=== PATIENT | male | born 1930 | race Caucasian/White ===

== ENCOUNTER 2016-10-03 14:07 | Inpatient (IN) ==
--- NOTE | 2016-10-03 15:04 | Emergency Department Note ---
General Adult HPI - General Chief complaint: Altered Mental Status Stated complaint: altered mental status Time Seen by Provider: 10/03/16 14:29 Source: EMS Mode of arrival: EMS - History of Present Illness HPI Narrative: History is obtained from the family. Apparently he's been on a downhill course for the last month, recently had a urinary tract infection which was treated and he had a follow-up appointment with [facility]. According to family he was started on antibiotics again just recently as they presumed he had another urinary infection, just in last 24 hours he's had a decrease in mentation today he had an episode where he had leg cramps and he seemed a lot more somnolent than he usually is, low-grade fever no chest pain no shortness of breath no cough history and he denies abdominal pain or chest pain. He's had stool and urinary incontinence and wears a depends. Memory issues which have been getting worse just recently put long-standing history of dementia issues. He does have a living will, limited interventions a - Related Data Home Medications Medication Instructions Recorded Confirmed aspirin 81 mg tablet,delayed 81 mg PO QDAY tab 09/25/14 09/15/16 release cholecalciferol (vitamin D3) 1,000 1,000 unit PO DAILY cap 09/25/14 09/15/16 unit capsule coenzyme Q10 100 mg capsule 200 mg PO QDAY cap 09/25/14 07/03/16 omega-3 fatty acids 1,000 mg 2,000 mg PO QDAY cap 09/25/14 09/15/16 capsule Cyanocobalamin [Vitamin B12] 1,000 mcg IM WEEKLY 07/03/16 09/15/16 acetaminophen 325 mg capsule 650 mg PO Q4H PRN 09/15/16 09/15/16 bisacodyl 10 mg rectal suppository 10 mg AK ONCE PRN 09/15/16 09/15/16 calcium carbonate 200 mg calcium 200 mg PO TID PRN 09/15/16 09/15/16 (500 mg) chewable tablet dutasteride 0.5 mg capsule 0.5 mg PO QDAY 09/15/16 09/15/16 escitalopram 10 mg tablet 10 mg PO QDAY 09/15/16 09/15/16 folic acid 1 mg tablet 1 mg PO QDAY 09/15/16 09/15/16 magnesium hydroxide 400 mg/5 mL 7.5 ml PO BID PRN 09/15/16 09/15/16 oral suspension melatonin 3 mg tablet 3 mg PO HS PRN 09/15/16 09/15/16 multivitamin,ov-llqp-qahhocmg 1 tab PO QDAY 09/15/16 09/15/16 tablet omeprazole 20 mg capsule,delayed 20 mg PO QDAY cap 09/15/16 09/15/16 release polyethylene glycol 3350 17 8.5 g PO QDAY PRN 09/15/16 09/15/16 gram/dose oral powder sodium phosphates 19 gram-7 118 ml AK ONCE 09/15/16 09/15/16 gram/118 mL enema Previous Rx's Medication Instructions Recorded metronidazole 0.75 % topical gel 1 applic TOPICAL QDAY #45 g 04/14/16 tamsulosin 0.4 mg capsule 0.4 mg PO .QOD #90 cap 06/08/16 isosorbide mononitrate ER 60 mg 60 mg PO QAM 90 Days 06/22/16 tablet,extended release 24 hr Phenazopyridine [Pyridium] 200 mg PO TIDP PRN #6 tab 08/24/16 Allergies Allergy/AdvReac Type Severity Reaction Status Date / Time Penicillins Allergy Severe Unknown Verified 10/03/16 14:13 niacin Allergy Intermediate Unknown Verified 10/03/16 14:13 hydrocodone AdvReac Mild Unknown Verified 10/03/16 14:13 Review of Systems Limitations: ROS unobtainable due to patients medical condition Constitutional: Reports: weakness Gastrointestinal: Reports: other (stool incontinence) Past Medical History - Past Medical History Source: unable to obtain, obtained from family Medical history: Reports: arthritis, asthma, coronary artery disease, hypertension Surgical history ED: Reports: angioplasty/stent, appendectomy, cholecystectomy, hip replacement, knee replacement Family history: Reports: no significant family history - Social History smoking status: Never smoker Alcohol use: Reports: Rarely Drug use: Reports: none Physical Exam - General Limitations: altered mental status, physical limitation General appearance: alert, lethargic - Head Head exam: atraumatic, normocephalic - Eye Eye exam: Present: normal appearance, PERRL, EOMI. Absent: conjunctival injection - ENT ENT exam: normal exam, mucous membranes dry, normal external ear exam, other ( Hearing aid bilaterally) - Neck Neck exam: Present: normal inspection, full ROM, trachea midline. Absent: tenderness, meningismus - Chest Chest inspection: Present: normal inspection, symmetric chest wall rise - Respiratory Respiratory exam: Present: normal lung sounds bilaterally. Absent: respiratory distress, wheezes - Cardiovascular Cardiovascular exam: Present: regular rate, normal rhythm - Abdominal Exam Abdominal exam: Present: soft, normal bowel sounds. Absent: distention, tenderness, guarding - exam: Present: normal inspection, normal testicular lie - Extremities Exam Extremities exam: Present: normal inspection, full ROM, other (decreased muscle tone in general) - Back Exam Back exam: Absent: CVA tenderness (R), CVA tenderness (L) - Neurological Exam Neurological exam: Present: other (Arousable he does follow simple commands) - Psychiatric Psychiatric exam: Present: normal affect - Skin Skin exam: Present: warm, dry, intact Course - Reevaluation(s) Reevaluation #1: Patient given IV fluids. We did check a urine specimen, also collected some stool as he was incontinent of stool. Stool was heme negative but did test positive for C. difficile. Vital Signs Temperature 99.9 F H 10/03/16 14:07 Pulse Rate 100 H 10/03/16 14:07 Respiratory Rate 13 10/03/16 14:07 Blood Pressure 142/102 10/03/16 14:07 Pulse Oximetry (%) 92 10/03/16 14:07 Temperature 99.9 F H 10/03/16 14:07 Pulse Rate 96 H 10/03/16 16:21 Respiratory Rate 25 H 10/03/16 16:31 Blood Pressure 99/63 10/03/16 16:31 Pulse Oximetry (%) 94 10/03/16 16:21 Medical Decision Making - [facility] Narrative Medical decision making narrative: Discussed hospital admission with Dr. Vaughan. He will stay in the hospital thi he did improve with IV fluids, he will need treatment for C. difficile diarrhe - Medical Records Medical records reviewed: Yes I reviewed the patient's medical records. - Lab Data Lab results reviewed: Yes I reviewed the patient's lab results. Result diagrams: 10/03/16 14:41 10/03/16 14:41 Lab Results 10/03/16 10/03/16 10/03/16 Range/Units 14:41 14:41 14:41 WBC 18.9 H (4.5-11.0) K/mcL RBC 4.99 (4.50-5.90) M/mcL Hgb 16.0 (13.5-16.5) g/dL Hct 47.9 (41.0-55.0) % MCV 96.1 (80.0-100.0) fL MCH 32.1 (26.0-34.0) pg MCHC 33.4 (31.0-36.0) g/dL RDW 14.4 (11.5-14.5) % Plt Count 201 (140-440) K/mcL MPV 8.5 (7.4-10.4) fL Gran % 96.4 H (38.0-78.0) % Lymph % (Auto) 1.4 L (15.5-49.0) % Amelia % (Auto) 2.0 (1.0-12.0) % Eos % (Auto) 0.2 (0.0-7.0) % Baso % (Auto) 0 (0.0-2.0) % Gran # 18.2 H (1.8-8.0) K/mcL Lymph # (Auto) 0.3 L (1.5-4.8) K/mcL Amelia # (Auto) 0.4 (0.1-0.9) K/mcL Eos # (Auto) 0 (0.0-0.7) K/mcL Baso # (Auto) 0 (0.0-0.3) K/mcL VBG Lactic Acid 1.5 (0.5-2.2) mmol/L Sodium 134 (133-145) mmol/L Potassium 3.7 (3.3-5.1) mmol/L Chloride 97 (96-108) mmol/L Carbon Dioxide 21 L (22-30) mmol/L Anion Gap 16.0 (8-16) BUN 11 (8-23) mg/dl Creatinine 0.7 (0.7-1.2) mg/dl GFR Calculation 85 Glucose 133 H (70-105) mg/dL Calcium 8.8 (8.6-10.4) mg/dl Total Bilirubin 1.2 H (0.0-1.0) mg/dL AST 26 (0-37) U/l ALT 22 (0-40) U/l Alkaline Phosphatase 67 (39-117) U/L C-Reactive Protein (0.0-0.8) mg/dl Total Protein 6.4 (5.9-8.4) gm/dL Albumin 3.9 (3.2-5.2) gm/dL Globulin 2.5 (2.2-3.7) gm/dL Albumin/Globulin Ratio 1.6 (1.0-2.3) Urine Color Urine Appearance Urine pH (5.0-9.0) Ur Specific Ping[place] (1.000-1.035) Urine Protein (NEG) mg/dL Urine Glucose (UA) (NEG) mg/dL Urine Ketones (NEG) mg/dL Urine Occult Blood (<0.03) mg/dL Urine Nitrate (NEG) Urine Bilirubin (NEG) mg/dL Urine Urobilinogen (NEG) mg/dL Ur Leukocyte Esterase (NEG) /uL Ur Culture Indicated? 10/03/16 10/03/16 Range/Units 14:41 15:23 WBC (4.5-11.0) K/mcL RBC (4.50-5.90) M/mcL Hgb (13.5-16.5) g/dL Hct (41.0-55.0) % MCV (80.0-100.0) fL MCH (26.0-34.0) pg MCHC (31.0-36.0) g/dL RDW (11.5-14.5) % Plt Count (140-440) K/mcL MPV (7.4-10.4) fL Gran % (38.0-78.0) % Lymph % (Auto) (15.5-49.0) % Amelia % (Auto) (1.0-12.0) % Eos % (Auto) (0.0-7.0) % Baso % (Auto) (0.0-2.0) % Gran # (1.8-8.0) K/mcL Lymph # (Auto) (1.5-4.8) K/mcL Amelia # (Auto) (0.1-0.9) K/mcL Eos # (Auto) (0.0-0.7) K/mcL Baso # (Auto) (0.0-0.3) K/mcL VBG Lactic Acid (0.5-2.2) mmol/L Sodium (133-145) mmol/L Potassium (3.3-5.1) mmol/L Chloride (96-108) mmol/L Carbon Dioxide (22-30) mmol/L Anion Gap (8-16) BUN (8-23) mg/dl Creatinine (0.7-1.2) mg/dl GFR Calculation Glucose (70-105) mg/dL Calcium (8.6-10.4) mg/dl Total Bilirubin (0.0-1.0) mg/dL AST (0-37) U/l ALT (0-40) U/l Alkaline Phosphatase (39-117) U/L C-Reactive Protein 1.4 H (0.0-0.8) mg/dl Total Protein (5.9-8.4) gm/dL Albumin (3.2-5.2) gm/dL Globulin (2.2-3.7) gm/dL Albumin/Globulin Ratio (1.0-2.3) Urine Color Yellow Urine Appearance Clear Urine pH 5.0 (5.0-9.0) Ur Specific [place] 1.015 (1.000-1.035) Urine Protein Neg (NEG) mg/dL Urine Glucose (UA) Negative (NEG) mg/dL Urine Ketones 5/tr A (NEG) mg/dL Urine Occult Blood Neg (<0.03) mg/dL Urine Nitrate Neg (NEG) Urine Bilirubin Neg (NEG) mg/dL Urine Urobilinogen Neg (NEG) mg/dL Ur Leukocyte Esterase Neg (NEG) /uL Ur Culture Indicated? No Disposition Pt seen by TEST DESK SUPERVISOR/PA only: No Clinical Impression: Clostridium difficile colitis, Altered mental status Disposition: Xfer As Inpt ([facility]) Condition: Fair Referrals: Desmond Jackson MD [Primary Care Provider] -
[2016-10-03] MEDS ORDERED: LACTATED RINGERS 1,000 ML IV ONE ×2 (15:10→16:55)
[2016-10-03 15:11] LABS: Basophils # (Auto) 0 K/mcL (0.0-0.3); Basophils % (Auto) 0 % (0.0-2.0); Eosinophils # (Auto) 0 K/mcL (0.0-0.7); Eosinophils % (Auto) 0.2 % (0.0-7.0); Granulocytes % (Auto) 96.4 % (38.0-78.0); Lymphocytes # (Auto) 0.3 K/mcL (1.5-4.8); Lymphocytes % (Auto) 1.4 % (15.5-49.0); Mean Cell Volume 96.1 fL (80.0-100.0); Mean Corpuscular HGB Conc 33.4 g/dL (31.0-36.0); Mean Corpuscular Hemoglobin 32.1 pg (26.0-34.0); Monocytes # (Auto) 0.4 K/mcL (0.1-0.9); Platelet Count 201 K/mcL (140-440); RBC 4.99 M/mcL (4.50-5.90); Red Cell Distribution Width 14.4 % (11.5-14.5)
[2016-10-03] MEDS ORDERED: LIDOCAINE JEL 2% 1 TUBE 30GM TOPICAL ONE (15:21)
[2016-10-03 15:38] LABS: ALT/SGPT 22 U/l (0-40); Albumin 3.9 gm/dL (3.2-5.2); Albumin/Globulin Ratio 1.6 (1.0-2.3); Alkaline Phosphatase 67 U/L (39-117); Blood Urea Nitrogen 11 mg/dl (8-23)
--- NOTE | 2016-10-03 15:56 | XRay Report ---
CLINICAL INFORMATION: Weakness TECHNIQUE: AP portable upright chest x-ray COMPARISON: Previous chest x-rays dated 04/30/2016 and 09/14/2013 FINDINGS: Lungs are negative. No parenchymal infiltrate or mass. Heart size and vascularity are normal. No pulmonary edema. No pulmonary congestion. Tarah and mediastinum are negative. Deformity of the proximal right humerus from previous fracture. Surgical resection of the distal right clavicle IMPRESSION: No acute abnormality. Interpreted and Authenticated by: Elder Carmona 10/03/16
[2016-10-03 16:02] LABS: Appearance,Urine CLEAR; Bilirubin,Urine NEG (NEG); Color,Urine YELLOW; Glucose,Urine (UA) NEGATIVE (NEG); Leukocyte Esterase,Urine NEG /uL (NEG); Nitrate,Urine NEG (NEG); Protein,Urine NEG (NEG); Specific Gravity,Urine 1.015 (1.000-1.035); Urine Blood NEG mg/dL (<0.03); Urobilinogen,Urine NEG (NEG)
--- NOTE | 2016-10-03 17:27 | Internal Med History&Physical ---
Medical - H&P: HPI Patient information: Note initiated : 10/03/16 at 5:23 pm Patient: Se Luz 86 y/o M admitted on for altered mental status. History of present illness: Mr. Luz is a 86 year old man who is known to have progressive dementia. He apparently was diagnosed with urinary tract infection several weeks ago, and had a Chen catheter as well. His says he was on antibiotics for the full 3 weeks that he had the catheter, and then another week after the catheter was removed. He just finished his antibiotics yesterday. He does have dementia, and recently was placed at the [facility], [facility]. She visits him daily. She says that this morning he had a formed bowel movement, and seemed in his normal state, which is that he does recognize her, but is often confused and forgetful. Somewhere around lunchtime, he suddenly started having severe diarrhea. He then seemed to get a lot more confused. He was brought to the emergency room for evaluation. In the ER, he was incontinent of liquid stool. C. difficile screen was sent, and was positive. White blood cell count is markedly elevated. He is also febrile. He is now admitted for treatment of C. difficile colitis, and Sirs syndrome. He is unable to participate in a history, and is mostly nonverbal. He keeps his eyes closed during most of the interview. His reports that he has had a difficult time settling in at the [facility], because of all the bladder issues. However, prior to today, she is not aware that he was having any fever or chills. He has not complained of headaches or dizziness, new eye or ear symptoms, or throat or cough, chest pain or palpitations, shortness of breath. Prior to today he was not having any abdominal pain, nausea or vomiting, diarrhea or constipation. She does not believe he had vomiting today. She says since the catheter was removed, he seems to be voiding adequately. Medical History Acute weakness (Acute) Angina pectoris (Acute) Vasopastic Angina Bladder neck obstruction (Acute) Closed avulsion fracture of left ankle (Acute) Closed fracture nasal bone (Acute) Colonic polyp (Acute) Constipation (Acute) Contusion (Acute) Coronary artery disease (Acute) Stents Dehydration (Acute) Elbow abrasion (Acute) Fracture of fifth finger, right, closed (Acute) Hyperlipidemia (Acute) Laceration of eyebrow (Acute) Minor head injury without loss of consciousness (Acute) Osteoarthritis (Acute) With extensive surgeries Rosacea (Acute) Syncope due to orthostatic hypotension (Acute) Chronic vertigo (Chronic) Osteoporosis Surgical History Status post vertebroplasty for 2 compression fractures. H/O repair of right rotator cuff (Acute) History of appendectomy (Acute) History of arthroscopic knee surgery (Acute) History of arthroscopy of right knee (Acute) History of blepharoplasty (Acute) Bilateral History of cholecystectomy (Acute) History of ear surgery (Acute) Stapedectomy History of intraocular lens implant (Acute) Bilateral/mono Vision contacts History of knee surgery (Acute) R MMR History of left hip replacement (Acute) History of left inguinal hernia repair (Acute) History of lumbar discectomy (Acute) History of repair of left rotator cuff (Acute) History of sinus surgery (Acute) History of tonsillectomy (Acute) History of total right knee replacement (Acute) Medication List acetaminophen 650 mg PO Q4H PRN aspirin 81 mg PO QDAY bisacodyl (Dulcolax (bisacodyl)) 10 mg GA ONCE PRN calcium carbonate (Antacid (calcium carbonate)) 200 mg PO TID PRN cholecalciferol (vitamin D3) 1,000 units PO DAILY coenzyme Q10 200 mg PO QDAY cyanocobalamin (vit B-12) 1,000 mcg IM WEEKLY dutasteride 0.5 mg PO QDAY escitalopram (Lexapro) 10 mg PO QDAY folic acid 1 mg PO QDAY isosorbide mononitrate ER 30 mg PO QAM 90 days magnesium hydroxide (Milk of Magnesia) 7.5 mL PO BID PRN melatonin 3 mg PO HS PRN metronidazole 0.75% 1 applic Topical QDAY multivitamin,[id number]-hbafgmhp tablet (Complete Multivitamin tablet) 1 tab PO QDAY omega-3 fatty acids 2,000 mg PO QDAY omeprazole 20 mg PO QDAY phenazopyridine 200 mg PO TIDP PRN polyethylene glycol 3350 (Miralax) 8.5 grams PO QDAY PRN tamsulosin 0.4 mg PO .QOD Furosemide 20 mg every 48 hours Lactobacillus 1 cap daily Allergies/Adverse Reactions Penicillins Allergy (Severe, Verified 06/02/16 16:39) Unknown niacin Allergy (Intermediate, Verified 06/02/16 16:39) Unknown hydrocodone Adverse Reaction (Mild, Verified 06/02/16 16:39) Unknown Doxazosin: Caused orthostatic hypotension. Family History Mother , at 81y Malignant neoplasm of breast Father , Murdered at 32y Instantaneous He has 2 sisters that have had Alzheimer's disease. One has . Social History His says he never used tobacco or drugs. He only drank alcohol occasionally, and none down. He [facility] into [facility]. 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 She visits him daily. She and their daughter are both here today. Medical - H&P: Meds Home Medications Medication Instructions Recorded Confirmed Type aspirin 81 mg tablet,delayed 81 mg PO QDAY tab 09/25/14 10/03/16 History release cholecalciferol (vitamin D3) 1,000 2,000 unit PO DAILY cap 09/25/14 09/15/16 History unit capsule omega-3 fatty acids 1,000 mg 1,000 mg PO BID cap 09/25/14 09/15/16 History capsule tamsulosin 0.4 mg capsule 0.4 mg PO .QOD #90 cap 06/08/16 09/15/16 Rx Cyanocobalamin [Vitamin B12] 1,000 mcg IM WEEKLY 07/03/16 10/03/16 History Phenazopyridine [Pyridium] 200 mg PO TIDP PRN #6 tab 08/24/16 10/03/16 Rx acetaminophen 325 mg capsule 650 mg PO Q4H PRN 09/15/16 10/03/16 History bisacodyl 10 mg rectal suppository 10 mg GA ONCE PRN 09/15/16 10/03/16 History calcium carbonate 200 mg calcium 200 mg PO TID PRN 09/15/16 10/03/16 History (500 mg) chewable tablet dutasteride 0.5 mg capsule 0.5 mg PO QDAY 09/15/16 10/03/16 History escitalopram 10 mg tablet 10 mg PO QDAY 09/15/16 10/03/16 History folic acid 1 mg tablet 1 mg PO QDAY 09/15/16 10/03/16 History magnesium hydroxide 400 mg/5 mL 7.5 ml PO BID PRN 09/15/16 10/03/16 History oral suspension melatonin 3 mg tablet 3 mg PO HS PRN 09/15/16 10/03/16 History multivitamin,gm-ticb-nynkmxxi 1 tab PO QDAY 09/15/16 10/03/16 History tablet omeprazole 20 mg capsule,delayed 20 mg PO QDAY cap 09/15/16 10/03/16 History release polyethylene glycol 3350 17 8.5 g PO QDAY PRN 09/15/16 10/03/16 History gram/dose oral powder sodium phosphates 19 gram-7 118 ml GA ONCE 09/15/16 10/03/16 History gram/118 mL enema Calcium (Oyster Shell) [Oscal] 500 mg PO DAILY 10/03/16 10/03/16 History Furosemide [Lasix] 20 mg PO Q48 10/03/16 10/03/16 History Isosorbide Mononitrate [Isosorbide 30 mg PO DAILY 10/03/16 10/03/16 History Mononitrate ER] Lactobacillus [Culturelle] 1 cap PO DAILY 10/03/16 10/03/16 History Melatonin [Melatin] 3 mg PO DAILY 10/03/16 10/03/16 History Allergies Allergy/AdvReac Type Severity Reaction Status Date / Time Penicillins Allergy Severe Swelling Verified 10/03/16 17:59 of Lip/Tongue/Throat niacin Allergy Intermediate Unknown Verified 10/03/16 14:13 hydrocodone AdvReac Mild Unknown Verified 10/03/16 14:13 Medical - H&P: Exam - Constitutional Vitals: Temp Pulse Resp BP Pulse Ox 99.9 F H 96 H 25 H 99/63 94 10/03/16 14:07 10/03/16 16:21 10/03/16 16:31 10/03/16 16:31 10/03/16 16:21 On exam, he is a well-developed well-nourished man, who generally keeps his eyes closed. He is able to follow some commands. His daughter notes that on the neuro exam in the emergency room, he could not figure out which hand was his right hand versus left. Head: Normocephalic atraumatic. Eyes: PERRLA, EOMI, anicteric. Ears: Canals and TMs are clear. Pharynx: Looks fairly clear. Teeth are in good repair. Neck: Appears supple, without obvious lymphadenopathy, JVD, thyromegaly, bruits. Cardiac exam shows regular rate and rhythm with normal S1 and S2, without murmurs rubs or gallops. Lungs: Are clear to auscultation, without rales, rhonchi, wheezes. Abdomen: Is soft and nontender. There is no guarding or rebound. Bowel sounds are active. Extremities: Show no cyanosis, clubbing, edema. There is a small abrasion on 1 of his toes. Neurologic exam: This is not tested in detail today. The patient is mostly nonverbal. His reports he can generally recognize her, but is quite forgetful otherwise. She and/or her daughter plan on staying in the room with him. Medical - H&P: Reslt - Labs CBC & Chem 7: 10/03/16 14:41 10/03/16 14:41 Labs: Short CBC 10/03/16 Range/Units 14:41 WBC 18.9 H (4.5-11.0) K/mcL Hgb 16.0 (13.5-16.5) g/dL Hct 47.9 (41.0-55.0) % Plt Count 201 (140-440) K/mcL BMP 10/03/16 14:41 Sodium 134 Potassium 3.7 Chloride 97 Carbon Dioxide 21 L BUN 11 Creatinine 0.7 Glucose 133 H Calcium 8.8 Liver Function 10/03/16 Range/Units 14:41 Total Bilirubin 1.2 H (0.0-1.0) mg/dL AST 26 (0-37) U/l ALT 22 (0-40) U/l Alkaline Phosphatase 67 (39-117) U/L Albumin 3.9 (3.2-5.2) gm/dL Urine 10/03/16 Range/Units 15:23 Urine Color Yellow Urine Appearance Clear Urine pH 5.0 (5.0-9.0) Ur Specific Burley 1.015 (1.000-1.035) Urine Protein Neg (NEG) mg/dL Urine Glucose (UA) Negative (NEG) mg/dL October 03: White blood cell count is 18,900, hemoglobin 16, hematocrit 48, platelets 201. Absolute neutrophil count is 18,200. X Lactic acid is normal at 1.5 Chemistry panel is notable for CO2 of 21, glucose 133, bilirubin 1.2 C-reactive protein is elevated at 1.4 Urinalysis shows 5 ketones, but is otherwise normal C. difficile toxin B is positive. Chest x-ray: Shows no acute disease. Medical - H&P: A/P (1) SIRS (systemic inflammatory response syndrome) Current visit: Yes Status: Acute (2) Altered mental status Current visit: Yes Status: Acute (3) Clostridium difficile colitis Current visit: Yes Status: Acute (4) Coronary artery disease Problem details: Stents Current visit: No Status: Chronic - Narrative A/P Narrative: #1. Infectious disease/GI. -Patient presents with diarrhea, marked leukocytosis, and positive C. difficile screen. He also meets criteria for Sirs syndrome. Admit. IV fluids. Oral vancomycin if tolerated. If not consider IV Flagyl. -Discontinue proton pump inhibitor. Try Pepcid instead. Add probiotics. Contact precautions. 2. CODE STATUS: The patient's says that in the past her has wanted to be a full code. She has his POA. We discussed that at his advanced age, and with his dementia, coding him for any reason would probably be an appropriate. She and her daughter will think this over some more. 3. DVT prophylaxis: Subcu Lovenox. 4. Neurologic. Altered mental status. Alzheimer's disease. He has had a tough time over the last few months, being in and out of the hospital and fighting bladder infections. I suspect his acute decline is just related to acute infection. -Possible depression. Continue Lexapro. 5. History of coronary disease. I believe he has had 2 stents placed. His says he has been very stable. Continue occasional Lasix. Continue Isordil. Continue aspirin. It appears he is no longer on a statin medication. -Monitor blood pressure. -It appears he used to be on Celebrex, but this would be contraindicated. I do believe this is been discontinued. #6. The reports that the patient was having significant leg cramping earlier today. Potassium added to his IV fluids. Check magnesium level. Calcium level appears normal. - This visit took approximately 60 minutes, to review patient's old records, review his case with the ER MD, examine him, review history with the and the daughter, review plan of care, and write orders .
[2016-10-03] MEDS ORDERED: ACETAMINOPHEN 325 MG TABLET PO PRN (18:36)
[2016-10-03] MEDS ORDERED: POTASSIUM CHLORIDE 20 MEQ in DEXTROSE 5%-1/2NS 1,000 ML IV SCH (18:36)
[2016-10-03] MEDS ORDERED: CALCIUM CARBONATE 500 MG TAB.CHEW CHEWED PRN (18:36)
[2016-10-03] MEDS ORDERED: ONDANSETRON 4 MG/2 ML VIAL IV PRN (18:36)
--- NOTE | 2016-10-03 19:32 | XRay Report ---
INDICATION: Leukocytosis, diarrhea, abdominal pain TECHNIQUE: AP, supine abdomen COMPARISON: CT scan dated 06/19/2009 FINDINGS: There is gas within the colon. No colonic distention. No evidence for significant constipation or impaction. No gas-filled dilated small bowel. No radiographic evidence for mechanical small bowel obstruction. No biliary or portal venous gas. No pneumatosis. No focal abnormality. No pathologic calcifications There is a prosthetic left hip. There are changes of multilevel degenerative disc disease. Patient has undergone previous kyphoplasty is or vertebroplasties IMPRESSION: Negative plain film abdomen Interpreted and Authenticated by: Elder Carmona 10/03/16
[2016-10-03] MEDS ORDERED: CALCIUM CARBONATE 500 MG TAB.CHEW PO PRN (20:02)
[2016-10-03] MEDS ORDERED: CYANOCOBALAMIN 1,000 MCG/ML VIAL IM SCH (20:15)
[2016-10-03] MEDS: DEXTROSE 5%-1/2NS W/20MEQ KCL 1,000 ML IV SCH (21:14)
[2016-10-03] MEDS ORDERED: VANCOMYCIN 500 MG VIAL ONE (21:24)
[2016-10-03] MEDS: FISH OIL 1,000 MG CAPSULE PO SCH (21:37)
[2016-10-03] MEDS: PHENAZOPYRIDINE 200 MG TABLET PO PRN (21:37)
[2016-10-03] MEDS: VANCOMYCIN ORAL SOL 1,000 MG/10 ML BOTTLE PO SCH (21:38)
[2016-10-03] MEDS: LACTOBACILLUS 1 CAPSULE PO SCH (21:38)
[2016-10-03] MEDS ORDERED: PSYLLIUM HUSK 6 GM PACKET PO ONE (22:00)
[2016-10-03] MEDS: ACETAMINOPHEN W/CODEINE #3 1 TABLET PO PRN (22:49)
[2016-10-03] MEDS: LOPERAMIDE 2 MG CAPSULE PO PRN (22:49)
[2016-10-03] MEDS: 0.9 % SODIUM CHLORIDE 10 ML SYRINGE IV SCH (23:47)
[2016-10-03] MEDS: PSYLLIUM HUSK 6 GM PACKET PO SCH (23:51)
[2016-10-04] MEDS: ACETAMINOPHEN W/CODEINE #3 1 TABLET PO PRN ×3 (04:26→16:13)
[2016-10-04] MEDS: LOPERAMIDE 2 MG CAPSULE PO PRN ×2 (04:28→19:00)
[2016-10-04] MEDS: DEXTROSE 5%-1/2NS W/20MEQ KCL 1,000 ML IV SCH (05:18)
[2016-10-04] MEDS: 0.9 % SODIUM CHLORIDE 10 ML SYRINGE IV SCH ×2 (05:42→15:22)
[2016-10-04 05:50] LABS: Basophils # (Auto) 0 K/mcL (0.0-0.3); Basophils % (Auto) 0 % (0.0-2.0); Eosinophils # (Auto) 0 K/mcL (0.0-0.7); Eosinophils % (Auto) 0.1 % (0.0-7.0); Lymphocytes # (Auto) 0.5 K/mcL (1.5-4.8); Mean Cell Volume 96.9 fL (80.0-100.0); Mean Corpuscular HGB Conc 33.9 g/dL (31.0-36.0); Mean Corpuscular Hemoglobin 32.8 pg (26.0-34.0); Monocytes # (Auto) 0.9 K/mcL (0.1-0.9); Monocytes % (Auto) 3.9 % (1.0-12.0); Platelet Count 196 K/mcL (140-440); RBC 4.53 M/mcL (4.50-5.90); Red Cell Distribution Width 14.7 % (11.5-14.5)
[2016-10-04 06:14] LABS: ALT/SGPT 24 U/l (0-40); Albumin 3.1 gm/dL (3.2-5.2); Albumin/Globulin Ratio 1.5 (1.0-2.3); Alkaline Phosphatase 58 U/L (39-117); Bilirubin,Direct 0.2 mg/dL (0.0-0.3); Blood Urea Nitrogen 9 mg/dl (8-23); Gamma Glutamyl Transpeptidase 11 U/L (8-61); Magnesium 1.8 mg/dL (1.6-2.5)
[2016-10-04] MEDS ORDERED: PSYLLIUM HUSK 6 GM PACKET PO SCH (09:00)
[2016-10-04] MEDS ORDERED: DUTASTERIDE 0.5 MG CAPSULE PO SCH (09:00)
[2016-10-04] MEDS ORDERED: MELATONIN 3 MG PO PRN ×2 (09:02→21:00)
[2016-10-04] MEDS ORDERED: DEXTROSE 5%-1/2NS W/20MEQ KCL 1,000 ML IV SCH (09:05)
[2016-10-04] MEDS: ENOXAPARIN 40 MG/0.4 ML SYRINGE SQ SCH (10:27)
[2016-10-04] MEDS: LACTOBACILLUS 1 CAPSULE PO SCH ×2 (10:28→21:54)
[2016-10-04] MEDS: PSYLLIUM HUSK 6 GM PACKET PO SCH ×2 (10:28→21:29)
[2016-10-04] MEDS: PHENAZOPYRIDINE 200 MG TABLET PO PRN (10:28)
[2016-10-04] MEDS: ESCITALOPRAM 10 MG TABLET PO SCH (10:29)
[2016-10-04] MEDS: FISH OIL 1,000 MG CAPSULE PO SCH ×2 (10:29→21:29)
[2016-10-04] MEDS: ISOSORBIDE MONONITRATE 30 MG TAB.XL.24H PO SCH (10:29)
[2016-10-04] MEDS: FOLIC ACID 1 MG TABLET PO SCH (10:29)
[2016-10-04] MEDS: CALCIUM (OYSTER SHELL) 500 MG TABLET PO SCH (10:29)
[2016-10-04] MEDS: MULTIVIT,THER IRON,CA,FA & MIN 1 TABLET PO SCH (10:29)
[2016-10-04] MEDS: ASPIRIN 81 MG TAB.CHEW PO SCH (10:29)
[2016-10-04] MEDS: TAMSULOSIN 0.4 MG CAPSULE PO SCH (10:30)
[2016-10-04] MEDS: VANCOMYCIN ORAL SOL 1,000 MG/10 ML BOTTLE PO SCH ×4 (10:30→21:28)
[2016-10-04] MEDS: VITAMIN D3 1,000 UNIT TABLET PO SCH (10:30)
--- NOTE | 2016-10-04 11:19 | Internal Med Progress Note ---
Medical - PN: Subj Patient information: Note initiated : 10/04/16 at 11:19 am Service Date, if different from initiated Date: [] Patient: Se Luz 86 y/o M admitted on 10/03/16 for altered mental status. Chief Complaint: [] Interval history: October 04, 2015: History of present illness: Mr. Luz is a 86 year old man who is known to have progressive dementia. He apparently was diagnosed with urinary tract infection several weeks ago, and had a Chen catheter as well. His says he was on antibiotics for the full 3 weeks that he had the catheter, and then another week after the catheter was removed. He just finished his antibiotics yesterday. He does have dementia, and recently was placed at the [place], permanently. She visits him daily. She says that this morning he had a formed bowel movement, and seemed in his normal state, which is that he does recognize her, but is often confused and forgetful. Somewhere around lunchtime, he suddenly started having severe diarrhea. He then seemed to get a lot more confused. He was brought to the emergency room for evaluation. In the ER, he was incontinent of liquid stool. C. difficile screen was sent, and was positive. White blood cell count is markedly elevated. He is also febrile. He is now admitted for treatment of C. difficile colitis, and Sirs syndrome. He is unable to participate in a history, and is mostly nonverbal. He keeps his eyes closed during most of the interview. His reports that he has had a difficult time settling in at the [facility], because of all the bladder issues. However, prior to today, she is not aware that he was having any fever or chills. He has not complained of headaches or dizziness, new eye or ear symptoms, or throat or cough, chest pain or palpitations, shortness of breath. Prior to today he was not having any abdominal pain, nausea or vomiting, diarrhea or constipation. She does not believe he had vomiting today. She says since the catheter was removed, he seems to be voiding adequately. October 04: Today, the patient is awake and alert. He states he is feeling much better. The volume of his diarrhea stools has decreased markedly overnight. He does seem a little bit confused, and tends to answer yes to questions about chest pain and shortness of breath and abdominal pain, but then cannot really describe them. Otherwise, he denies subjective fever chills, headaches or dizziness, sore throat or cough, nausea or vomiting, dysuria. -Nurses report post void residual today was less than 150 mL. - Constitutional Vitals: Vital Signs Temp Pulse Resp BP Pulse Ox 98.0 F 70 18 95/52 93 10/04/16 07:36 10/04/16 03:35 10/04/16 07:36 10/04/16 07:36 10/04/16 07:36 Period Temp Pulse Resp BP Sys/Cheng Pulse Ox Last 24 Hr 97.6 F-98.3 F 68-80 18-20 90-110/50-64 93-96 Intake and Output 10/03/16 10/04/16 10/04/16 21:59 05:59 13:59 Intake Total 127 / 2127 807 / 807 Output Total 100 / 100 3 / 3 2 / 2 Balance 2026 804 / 804 -2 / -2 Weight 139 lb Intake & Output: Intake & Output 10/03/16 10/04/16 10/04/16 21:59 05:59 13:59 Intake Total 127 / 2127 807 / 807 Output Total 100 / 100 3 / 3 2 / 2 Balance 2026 804 / 804 -2 / -2 Weight 139 lb Intake: IV 127 / 127 807 / 807 Dextrose 5%-1/2Ns W/20Meq 807 / 807 KCl 1,000 ml @ 100 mls/ hr IV Q10H [facility] Rx#: [id number] Potassium Chloride 20 Meq 127 / 127 In Dextrose 5%-1/2Ns IV Solution 1,000 ml @ 100 mls/hr IV .Q10H6M [facility] Rx# :[id number] Output: Void Amount 100 / 100 # of times incontinent of 3 / 3 2 / 2 urine Urine/Stool Mix 0 / 0 Other: # Voids 1 # of times incontinent of 1 2 Bowels On exam, he is sitting up in bed, awake and alert. He is very pleasant. His son-in-law is in the room with him today. Neck is supple without obvious JVD. Cardiac exam shows regular rate and rhythm. Lungs show a few crackles at the bases, but otherwise are clear to auscultation. Abdomen is soft and nontender with active bowel sounds. Extremities show no significant edema. Neurologic exam: The patient is much more alert and interactive today. Otherwise exam is grossly nonfocal. 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 Previous kyphoplasty and vertebroplasty's. No colon distention or signs of obstruction. White blood cell count is 18,900, hemoglobin 16, hematocrit 48, platelets 201. Absolute neutrophil count is 18,200. X Lactic acid is normal at 1.5 Chemistry panel is notable for CO2 of 21, glucose 133, bilirubin 1.2 C-reactive protein is elevated at 1.4 Urinalysis shows 5 ketones, but is otherwise normal C. difficile toxin B is positive. Chest x-ray: Shows no acute disease. Meds: Medications Acetaminophen (Tylenol) 650 mg PO Q6HP PRN PRN Reason: PAIN/FEVER > 101 Acetaminophen/Codeine Phosphate (Tylenol #3) 1 tab PO Q4HP PRN PRN Reason: Pain Last Admin: 10/04/16 10:28 Dose: 1 tab Aspirin (Aspirin) 81 mg PO DAILY [facility] Last Admin: 10/04/16 10:29 Dose: 81 mg Calcium Carbonate/Glycine (Tums) 1,000 mg CHEWED Q4HP PRN PRN Reason: Dyspepsia Calcium Carbonate/Glycine (Oscal) 500 mg PO DAILY [facility] Last Admin: 10/04/16 10:29 Dose: 500 mg Dutasteride (Avodart) 0.5 mg PO Q48H [facility] Enoxaparin Sodium (Lovenox) 40 mg SQ DAILY [facility] Last Admin: 10/04/16 10:27 Dose: 40 mg Escitalopram Oxalate (Lexapro) 10 mg PO QDAY [facility] Last Admin: 10/04/16 10:29 Dose: 10 mg Fish Oil (Fish Oil) 1,000 mg PO BID [facility] Last Admin: 10/04/16 10:29 Dose: 1,000 mg Folic Acid (Folic Acid) 1 mg PO QDAY [facility] Last Admin: 10/04/16 10:29 Dose: 1 mg Potassium Chloride/Dextrose/Sod Cl (Dextrose 5%-1/2ns W/20meq Kcl) 1,000 mls @ 150 mls/hr IV Q10H [facility] Iron Carb/Multivit/[place]/Folic Acid (Multivitamin W/Minerals) 1 tab PO DAILY [facility] Last Admin: 10/04/16 10:29 Dose: 1 tab Isosorbide Mononitrate (Imdur) 30 mg PO DAILY [facility] Last Admin: 10/04/16 10:29 Dose: 30 mg Lactobacillus Rhamnosus (Culturelle) 1 cap PO BID [facility] Last Admin: 10/04/16 10:28 Dose: 1 cap Loperamide HCl (Imodium) 2 mg PO Q2HP PRN PRN Reason: Diarrhea Last Admin: 10/04/16 04:28 Dose: 2 mg Ondansetron HCl (Zofran) 4 mg IV Q6HP PRN PRN Reason: Nausea And Vomiting Melatonin [Melatin] (3 Mg Tablet) 1 dose PO HSP PRN PRN Reason: Insomnia Phenazopyridine HCl (Pyridium) 200 mg PO TIDP PRN PRN Reason: Dysuria Last Admin: 10/04/16 10:28 Dose: 200 mg Psyllium Hydrophilic Mucilloid (Metamucil) 6 gm PO BID [facility] Last Admin: 10/04/16 10:28 Dose: 6 gm Sodium Chloride (Saline Flush) 10 ml IV Q8 [facility] Last Admin: 10/04/16 05:42 Dose: Not Given Tamsulosin HCl (Flomax) 0.4 mg PO Q48H [facility] Vancomycin HCl (Vancomycin Oral Amanda) 250 mg PO QID [facility] Last Admin: 10/04/16 10:30 Dose: 250 mg Vitamin D (Vitamin D3) 2,000 unit PO DAILY [facility] Medical - PN: A/P - Time Spent With Patient Total time spent is greater than 50% in coordination of care (as documented) at patient's floor/unit and/or counseling patient: 25 - 35 minutes (1) SIRS (systemic inflammatory response syndrome) Status: Acute Current Visit: Yes (2) Altered mental status Status: Acute Current Visit: Yes (3) Clostridium difficile colitis Status: Acute Current Visit: Yes (4) Coronary artery disease Problem details: Stents Status: Chronic Current Visit: No - Narrative A/P Narrative: #1. Infectious disease/GI. -Patient presents with diarrhea, marked leukocytosis, and positive C. difficile screen. He also meets criteria for Sirs syndrome. Admit. -Blood pressure is running a bit low today, so I will include decrease his IV fluid rate. He is also taking an oral diet now. Oral vancomycin, and he seems to be tolerating this. -Discontinue proton pump inhibitor. Try Pepcid instead. Add probiotics. Contact precautions. -White blood cell count is higher today, but I expect that will improve by tomorrow. Recheck labs in the morning. 2. CODE STATUS: The patient's says that in the past her has wanted to be a full code. She has his POA. We discussed that at his advanced age, and with his dementia, coding him for any reason would probably be an appropriate. She and her daughter will think this over some more. 3. DVT prophylaxis: Subcu Lovenox. 4. Neurologic. Altered mental status. Alzheimer's disease. He has had a tough time over the last few months, being in and out of the hospital and fighting bladder infections. I suspect his acute decline is just related to acute infection. -Possible depression. Continue Lexapro. 5. History of coronary disease. I believe he has had 2 stents placed. His says he has been very stable. Continue occasional Lasix. Continue Isordil. Continue aspirin. It appears he is no longer on a statin medication. -Monitor blood pressure. -It appears he used to be on Celebrex, but this would be contraindicated. I do believe this is been discontinued. #6. The reports that the patient was having significant leg cramping yesterday. Potassium added to his IV fluids. Check magnesium level. Calcium level appears normal. - Approximately 30 minutes was spent today reviewing test results, interviewing and examining the patient, reviewing plan of care with the patient and his son- in-law, and writing orders. Medical - PN: Qual - VTE Deep Vein Thrombosis/Pulmonary Embolism Present on Admission: No
[2016-10-04] MEDS: POTASSIUM CHLORIDE 20 MEQ in 0.45 % SODIUM CHLORIDE 1,000 ML IV SCH (16:28)
[2016-10-05] MEDS: LOPERAMIDE 2 MG CAPSULE PO PRN (00:15)
[2016-10-05] MEDS: ACETAMINOPHEN W/CODEINE #3 1 TABLET PO PRN (00:29)
[2016-10-05] MEDS: 0.9 % SODIUM CHLORIDE 10 ML SYRINGE IV SCH ×4 (00:42→21:43)
[2016-10-05] MEDS: POTASSIUM CHLORIDE 20 MEQ in 0.45 % SODIUM CHLORIDE 1,000 ML IV SCH ×5 (02:13→23:29)
[2016-10-05 06:02] LABS: Basophils # (Auto) 0 K/mcL (0.0-0.3); Basophils % (Auto) 0 % (0.0-2.0); Eosinophils # (Auto) 0.1 K/mcL (0.0-0.7); Eosinophils % (Auto) 0.8 % (0.0-7.0); Granulocytes % (Auto) 88.2 % (38.0-78.0); Lymphocytes # (Auto) 0.5 K/mcL (1.5-4.8); Lymphocytes % (Auto) 4.3 % (15.5-49.0); Mean Cell Volume 97.6 fL (80.0-100.0); Mean Corpuscular HGB Conc 34.3 g/dL (31.0-36.0); Mean Corpuscular Hemoglobin 33.5 pg (26.0-34.0); Monocytes # (Auto) 0.8 K/mcL (0.1-0.9); Monocytes % (Auto) 6.7 % (1.0-12.0); Platelet Count 164 K/mcL (140-440); Red Cell Distribution Width 14.9 % (11.5-14.5)
[2016-10-05 06:22] LABS: ALT/SGPT 22 U/l (0-40); Albumin 2.7 gm/dL (3.2-5.2); Albumin/Globulin Ratio 1.2 (1.0-2.3); Alkaline Phosphatase 67 U/L (39-117); Bilirubin,Direct < 0.2 mg/dL (0.0-0.3); Blood Urea Nitrogen 9 mg/dl (8-23); Gamma Glutamyl Transpeptidase 9 U/L (8-61); Magnesium 1.8 mg/dL (1.6-2.5); Uric Acid 3.4 mg/dL (2.5-8.0)
[2016-10-05] MEDS: VITAMIN D3 1,000 UNIT TABLET PO SCH (10:32)
[2016-10-05] MEDS: FOLIC ACID 1 MG TABLET PO SCH (10:32)
[2016-10-05] MEDS: ISOSORBIDE MONONITRATE 30 MG TAB.XL.24H PO SCH (10:32)
[2016-10-05] MEDS: CALCIUM (OYSTER SHELL) 500 MG TABLET PO SCH (10:32)
[2016-10-05] MEDS: PSYLLIUM HUSK 6 GM PACKET PO SCH ×2 (10:32→21:42)
[2016-10-05] MEDS: FISH OIL 1,000 MG CAPSULE PO SCH ×2 (10:32→21:42)
[2016-10-05] MEDS: ASPIRIN 81 MG TAB.CHEW PO SCH (10:32)
[2016-10-05] MEDS: FUROSEMIDE 20 MG TABLET PO SCH (10:32)
[2016-10-05] MEDS: ESCITALOPRAM 10 MG TABLET PO SCH (10:32)
[2016-10-05] MEDS: MULTIVIT,THER IRON,CA,FA & MIN 1 TABLET PO SCH (10:32)
[2016-10-05] MEDS: LACTOBACILLUS 1 CAPSULE PO SCH ×2 (10:33→21:41)
[2016-10-05] MEDS: DUTASTERIDE 0.5 MG CAPSULE PO SCH (10:33)
[2016-10-05] MEDS: ENOXAPARIN 40 MG/0.4 ML SYRINGE SQ SCH (10:33)
[2016-10-05] MEDS ORDERED: MAGNESIUM SULFATE 2 GM/50 ML BAG IV PRN (11:42)
[2016-10-05] MEDS: VANCOMYCIN ORAL SOL 1,000 MG/10 ML BOTTLE PO SCH ×5 (13:19→21:42)
--- NOTE | 2016-10-05 14:34 | Internal Med Progress Note ---
Medical - PN: Subj Patient information: Note initiated : 10/05/16 at 2:30 pm Service Date, if different from initiated Date: [] Patient: Se Luz 86 y/o M admitted on 10/03/16 for altered mental status. Chief Complaint: [] Interval history: October 04, 2015: History of present illness: Mr. Luz is a 86 year old man who is known to have progressive dementia. He apparently was diagnosed with urinary tract infection several weeks ago, and had a Chen catheter as well. His says he was on antibiotics for the full 3 weeks that he had the catheter, and then another week after the catheter was removed. He just finished his antibiotics yesterday. He does have dementia, and recently was placed [place] the [place] permanently. She visits him daily. She says that this morning he had a formed bowel movement, and seemed in his normal state, which is that he does recognize her, but is often confused and forgetful. Somewhere around lunchtime, he suddenly started having severe diarrhea. He then seemed to get a lot more confused. He was brought to the emergency room for evaluation. In the ER, he was incontinent of liquid stool. C. difficile screen was sent, and was positive. White blood cell count is markedly elevated. He is also febrile. He is now admitted for treatment of C. difficile colitis, and Sirs syndrome. He is unable to participate in a history, and is mostly nonverbal. He keeps his eyes closed during most of the interview. His reports that he has had a difficult time settling in at the [place], because of all the bladder issues. However, prior to today, she is not aware that he was having any fever or chills. He has not complained of headaches or dizziness, new eye or ear symptoms, or throat or cough, chest pain or palpitations, shortness of breath. Prior to today he was not having any abdominal pain, nausea or vomiting, diarrhea or constipation. She does not believe he had vomiting today. She says since the catheter was removed, he seems to be voiding adequately. October 04: Today, the patient is awake and alert. He states he is feeling much better. The volume of his diarrhea stools has decreased markedly overnight. He does seem a little bit confused, and tends to answer yes to questions about chest pain and shortness of breath and abdominal pain, but then cannot really describe them. Otherwise, he denies subjective fever chills, headaches or dizziness, sore throat or cough, nausea or vomiting, dysuria. -Nurses report post void residual today was less than 150 mL. October 05- mproving C. difficile diarrhea with downtrending white count from 22, 800-12.1. Diarrhea has significantly improved. case discussed with family. family concerned about significant hallucinations and delirious behavior along with leg cramps. continue aggressive electrolyte replacement potassium and phosphorus/magnesium. continue physical therapy. Anticipate discharge in 48 hours once clinically improved. No concerns expressed by nursing staff. No overnight fever chills. delirium watch and avoid opioids. - Constitutional Vitals: Vital Signs Temp Pulse Resp BP Pulse Ox 98.0 F 77 18 101/69 94 10/05/16 12:00 10/05/16 04:00 10/05/16 12:00 10/05/16 12:00 10/05/16 12:00 Period Temp Pulse Resp BP Sys/Cheng Pulse Ox Last 24 Hr 97.1 F-98.8 F 75-93 16-20 88-101/50-71 93-98 Intake and Output 10/05/16 10/05/16 10/05/16 05:59 13:59 21:59 Intake Total 1010 / 1010 983 / 983 Output Total 100 / 100 Balance 1010 / 1010 883 / 883 Weight 138 lb Patient Weight 10/06/16 05:59 Weight 138 lb Intake & Output: Intake & Output 10/05/16 10/05/16 10/05/16 05:59 13:59 21:59 Intake Total 1010 / 1010 983 / 983 Output Total 100 / 100 Balance 1010 / 1010 883 / 883 Weight 138 lb Intake: IV 1010 / 1010 983 / 983 Potassium Chloride 20 Meq 1010 / 1010 983 / 983 In Sodium Chloride 0.45% 1,000 ml @ 100 mls/hr IV .Q10H6M [facility] Rx#: [id number] Output: Void Amount 100 / 100 Other: # Voids 1 # of times incontinent of 1 Bowels General appearance: no acute distress Exam: alert Nondistressed nontender abdomen Nonlabored breathing Medical - PN: Obj Da - Labs CBC & Chem 7: 10/05/16 04:31 10/05/16 04:31 Labs: Abnormal Lab Results 10/05/16 10/05/16 10/04/16 04:31 04:31 04:55 WBC 12.1 H RBC 4.10 L Hct 40.0 L RDW 14.9 H Gran % 88.2 H Lymph % (Auto) 4.3 L Gran # 10.7 H Lymph # (Auto) 0.5 L Calcium 8.0 L 8.2 L Phosphorus 1.6 L 2.5 L Total Bilirubin 1.3 H Total Protein 4.9 L 5.2 L Albumin 2.7 L 3.1 L Globulin 2.1 L 10/04/16 04:55 WBC 22.8 H RBC Hct RDW 14.7 H Gran % 94.0 H Lymph % (Auto) 2.0 L Gran # 21.4 H Lymph # (Auto) 0.5 L Calcium Phosphorus Total Bilirubin Total Protein Albumin Globulin Meds: Medications Acetaminophen (Tylenol) 650 mg PO Q6HP PRN PRN Reason: PAIN/FEVER > 101 Acetaminophen/Codeine Phosphate (Tylenol #3) 1 tab PO Q4HP PRN PRN Reason: Pain Last Admin: 10/05/16 00:29 Dose: 1 tab Aspirin (Aspirin) 81 mg PO DAILY [facility] Last Admin: 10/05/16 10:32 Dose: 81 mg Calcium Carbonate/Glycine (Tums) 1,000 mg CHEWED Q4HP PRN PRN Reason: Dyspepsia Calcium Carbonate/Glycine (Oscal) 500 mg PO DAILY [facility] Last Admin: 10/05/16 10:32 Dose: 500 mg Dutasteride (Avodart) 0.5 mg PO Q48H [facility] Last Admin: 10/05/16 10:33 Dose: 0.5 mg Enoxaparin Sodium (Lovenox) 40 mg SQ DAILY [facility] Last Admin: 10/05/16 10:33 Dose: 40 mg Escitalopram Oxalate (Lexapro) 10 mg PO QDAY [facility] Last Admin: 10/05/16 10:32 Dose: 10 mg Fish Oil (Fish Oil) 1,000 mg PO BID [facility] Last Admin: 10/05/16 10:32 Dose: 1,000 mg Folic Acid (Folic Acid) 1 mg PO QDAY [facility] Last Admin: 10/05/16 10:32 Dose: 1 mg Furosemide (Lasix) 20 mg PO Q48 [facility] Last Admin: 10/05/16 10:32 Dose: 20 mg Potassium Chloride 20 meq/ (Sodium Chloride) 1,010 mls @ 100 mls/hr IV .Q10H6M [facility] Last Admin: 10/05/16 13:22 Dose: 100 mls/hr Magnesium Sulfate (Magnesium Sulfate) 2 gm in 50 mls @ 50 mls/hr IV UD PRN PRN Reason: Mag < or = 1.7 Iron Carb/Multivit/[employer]/Folic Acid (Multivitamin W/Minerals) 1 tab PO DAILY [facility] Last Admin: 10/05/16 10:32 Dose: 1 tab Isosorbide Mononitrate (Imdur) 30 mg PO DAILY [facility] Last Admin: 10/05/16 10:32 Dose: 30 mg Lactobacillus Rhamnosus (Culturelle) 1 cap PO BID [facility] Last Admin: 10/05/16 10:33 Dose: Not Given Loperamide HCl (Imodium) 2 mg PO Q2HP PRN PRN Reason: Diarrhea Last Admin: 10/05/16 00:15 Dose: 2 mg Ondansetron HCl (Zofran) 4 mg IV Q6HP PRN PRN Reason: Nausea And Vomiting Melatonin [Melatin] (3 Mg Tablet) 1 dose PO HSP PRN PRN Reason: Insomnia Phenazopyridine HCl (Pyridium) 200 mg PO TIDP PRN PRN Reason: Dysuria Last Admin: 10/04/16 10:28 Dose: 200 mg Potassium Chloride (Potassium Chloride) 15 meq PT BIDCC [facility] Potassium/Phosphorus/Sodium (Neutra Phos) 2 packet PO BID [facility] Psyllium Hydrophilic Mucilloid (Metamucil) 6 gm PO BID [facility] Last Admin: 10/05/16 10:32 Dose: 6 gm Sodium Chloride (Saline Flush) 10 ml IV Q8 [facility] Last Admin: 10/05/16 13:25 Dose: Not Given Tamsulosin HCl (Flomax) 0.4 mg PO Q48H [facility] Last Admin: 10/04/16 10:30 Dose: 0.4 mg Vancomycin HCl (Vancomycin Oral Amanda) 250 mg PO QID [facility] Last Admin: 10/05/16 13:19 Dose: 250 mg Vitamin D (Vitamin D3) 2,000 unit PO DAILY [facility] Last Admin: 10/05/16 10:32 Dose: 2,000 unit Medical - PN: A/P - Time Spent With Patient Total time spent is greater than 50% in coordination of care (as documented) at patient's floor/unit and/or counseling patient: 25 - 35 minutes - Narrative A/P Narrative: * C. difficile colitis- continue oral vancomycin * Severe diarrhea- clinically improving. Continue crystalloids * Sepsis-clinically improving . White count downtrending 22-12 * change in mental status in light of Alzheimer's dementia with sundowning and delirium. Close monitoring * history of CAD-continue isosorbide/aspirin * prophylaxis Lovenox. Heparin * full CODE STATUS plan * electrolyte Replacement * Oral vancomycin * continue daily and watch/avoid opioids and hypnotics * sepsis management per guidelines * Possible discharge in 24-48 hours Medical - PN: Qual - VTE Deep Vein Thrombosis/Pulmonary Embolism Present on Admission: No
[2016-10-05] MEDS: POTASSIUM CHLORIDE 20 MEQ/15 ML ML PT SCH (18:31)
[2016-10-05] MEDS: NEUTRA PHOS 1 PACKET PO SCH (21:42)
[2016-10-06] MEDS: 0.9 % SODIUM CHLORIDE 10 ML SYRINGE IV SCH ×3 (05:00→22:09)
[2016-10-06 06:00] LABS: Basophils # (Auto) 0 K/mcL (0.0-0.3); Basophils % (Auto) 0 % (0.0-2.0); Eosinophils # (Auto) 0.3 K/mcL (0.0-0.7); Eosinophils % (Auto) 3.2 % (0.0-7.0); Granulocytes % (Auto) 78.5 % (38.0-78.0); Lymphocytes # (Auto) 0.7 K/mcL (1.5-4.8); Lymphocytes % (Auto) 7.6 % (15.5-49.0); Mean Cell Volume 97.6 fL (80.0-100.0); Mean Corpuscular HGB Conc 34.9 g/dL (31.0-36.0); Mean Corpuscular Hemoglobin 34.1 pg (26.0-34.0); Monocytes # (Auto) 0.9 K/mcL (0.1-0.9); Monocytes % (Auto) 10.7 % (1.0-12.0); Platelet Count 177 K/mcL (140-440); RBC 4.04 M/mcL (4.50-5.90); Red Cell Distribution Width 14.7 % (11.5-14.5)
[2016-10-06 06:31] LABS: ALT/SGPT 17 U/l (0-40); Albumin 2.8 gm/dL (3.2-5.2); Albumin/Globulin Ratio 1.3 (1.0-2.3); Alkaline Phosphatase 61 U/L (39-117); Bilirubin,Direct < 0.2 mg/dL (0.0-0.3); Blood Urea Nitrogen 7 mg/dl (8-23); Gamma Glutamyl Transpeptidase 8 U/L (8-61); Magnesium 1.8 mg/dL (1.6-2.5); Uric Acid 3.9 mg/dL (2.5-8.0)
--- NOTE | 2016-10-06 07:59 | Internal Med Progress Note ---
Medical - PN: Subj Patient information: Note initiated : 10/06/16 at 7:57 am Service Date, if different from initiated Date: [] Patient: Se Luz 86 y/o M admitted on 10/03/16 for altered mental status. Chief Complaint: [] Interval history: October 04, 2015: History of present illness: Mr. Luz is a 86 year old man who is known to have progressive dementia. He apparently was diagnosed with urinary tract infection several weeks ago, and had a Chen catheter as well. His says he was on antibiotics for the full 3 weeks that he had the catheter, and then another week after the catheter was removed. He just finished his antibiotics yesterday. He does have dementia, and recently was placed at the [facility], permanently. She visits him daily. She says that this morning he had a formed bowel movement, and seemed in his normal state, which is that he does recognize her, but is often confused and forgetful. Somewhere around lunchtime, he suddenly started having severe diarrhea. He then seemed to get a lot more confused. He was brought to the emergency room for evaluation. In the ER, he was incontinent of liquid stool. C. difficile screen was sent, and was positive. White blood cell count is markedly elevated. He is also febrile. He is now admitted for treatment of C. difficile colitis, and Sirs syndrome. He is unable to participate in a history, and is mostly nonverbal. He keeps his eyes closed during most of the interview. His reports that he has had a difficult time settling in at the [facility], because of all the bladder issues. However, prior to today, she is not aware that he was having any fever or chills. He has not complained of headaches or dizziness, new eye or ear symptoms, or throat or cough, chest pain or palpitations, shortness of breath. Prior to today he was not having any abdominal pain, nausea or vomiting, diarrhea or constipation. She does not believe he had vomiting today. She says since the catheter was removed, he seems to be voiding adequately. October 04: Today, the patient is awake and alert. He states he is feeling much better. The volume of his diarrhea stools has decreased markedly overnight. He does seem a little bit confused, and tends to answer yes to questions about chest pain and shortness of breath and abdominal pain, but then cannot really describe them. Otherwise, he denies subjective fever chills, headaches or dizziness, sore throat or cough, nausea or vomiting, dysuria. -Nurses report post void residual today was less than 150 mL. October 05- mproving C. difficile diarrhea with downtrending white count from 22, 800-12.1. Diarrhea has significantly improved. case discussed with family. family concerned about significant hallucinations and delirious behavior along with leg cramps. continue aggressive electrolyte replacement potassium and phosphorus/magnesium. continue physical therapy. Anticipate discharge in 48 hours once clinically improved. No concerns expressed by nursing staff. No overnight fever chills. delirium watch and avoid opioids. October 06- patient clinically improved. White count down to 8.7. incontinent but improved diarrhea. No fever chills. Hallucinations have improved since yesterday. Dementia appears to be at baseline. As per and family patient is still weak. We await further physical therapy recommendations. Patient would likely transfer to a care center in 24 hours on continued oral vancomycin. continue oral phosphorus replacement. - Constitutional Vitals: Vital Signs Temp Pulse Resp BP Pulse Ox 97.3 F 63 18 120/64 96 10/06/16 06:52 10/06/16 06:52 10/06/16 06:52 10/06/16 06:52 10/06/16 06:52 Period Temp Pulse Resp BP Sys/Cheng Pulse Ox Last 24 Hr 97.3 F-98.8 F 60-70 18-20 92-122/52-76 91-96 Intake and Output 10/05/16 10/06/16 10/06/16 21:59 05:59 13:59 Intake Total 1010 / 1010 Output Total 604 / 604 402 / 402 Balance -604 / -604 608 / 608 Weight 137 lb Intake & Output: Intake & Output 10/05/16 10/06/16 10/06/16 21:59 05:59 13:59 Intake Total 1010 / 1010 Output Total 604 / 604 402 / 402 Balance -604 / -604 608 / 608 Weight 137 lb Intake: IV 1010 / 1010 Potassium Chloride 20 Meq 1010 / 1010 In Sodium Chloride 0.45% 1,000 ml @ 100 mls/hr IV .Q10H6M [facility] Rx#: [id number] Output: Void Amount 600 / 600 400 / 400 # of times incontinent of 4 / 4 2 / 2 urine Other: # of times incontinent of 1 1 Bowels General appearance: cooperative, no acute distress Exam: incontinent but improved diarrhea No lymphedema No anxiety Nonlabored breathing Nondistended nontender abdomen Medical - PN: Obj Da - Labs CBC & Chem 7: 10/06/16 03:30 10/06/16 03:30 Labs: Abnormal Lab Results 10/06/16 10/06/16 10/05/16 03:30 03:30 04:31 WBC RBC 4.04 L Hct 39.4 L MCH 34.1 H RDW 14.7 H Gran % 78.5 H Lymph % (Auto) 7.6 L Gran # Lymph # (Auto) 0.7 L Carbon Dioxide 21 L BUN 7 L Creatinine 0.6 L Calcium 8.1 L 8.0 L Phosphorus 1.7 L 1.6 L Total Bilirubin Total Protein 5.0 L 4.9 L Albumin 2.8 L 2.7 L Globulin 10/05/16 10/04/16 10/04/16 04:31 04:55 04:55 WBC 12.1 H 22.8 H RBC 4.10 L Hct 40.0 L MCH RDW 14.9 H 14.7 H Gran % 88.2 H 94.0 H Lymph % (Auto) 4.3 L 2.0 L Gran # 10.7 H 21.4 H Lymph # (Auto) 0.5 L 0.5 L Carbon Dioxide BUN Creatinine Calcium 8.2 L Phosphorus 2.5 L Total Bilirubin 1.3 H Total Protein 5.2 L Albumin 3.1 L Globulin 2.1 L Meds: Medications Acetaminophen (Tylenol) 650 mg PO Q6HP PRN PRN Reason: PAIN/FEVER > 101 Acetaminophen/Codeine Phosphate (Tylenol #3) 1 tab PO Q4HP PRN PRN Reason: Pain Last Admin: 10/05/16 00:29 Dose: 1 tab Aspirin (Aspirin) 81 mg PO DAILY [facility] Last Admin: 10/05/16 10:32 Dose: 81 mg Calcium Carbonate/Glycine (Tums) 1,000 mg CHEWED Q4HP PRN PRN Reason: Dyspepsia Calcium Carbonate/Glycine (Oscal) 500 mg PO DAILY [facility] Last Admin: 10/05/16 10:32 Dose: 500 mg Dutasteride (Avodart) 0.5 mg PO Q48H [facility] Last Admin: 10/05/16 10:33 Dose: 0.5 mg Enoxaparin Sodium (Lovenox) 40 mg SQ DAILY [facility] Last Admin: 10/05/16 10:33 Dose: 40 mg Escitalopram Oxalate (Lexapro) 10 mg PO QDAY [facility] Last Admin: 10/05/16 10:32 Dose: 10 mg Fish Oil (Fish Oil) 1,000 mg PO BID [facility] Last Admin: 10/05/16 21:42 Dose: 1,000 mg Folic Acid (Folic Acid) 1 mg PO QDAY [facility] Last Admin: 10/05/16 10:32 Dose: 1 mg Furosemide (Lasix) 20 mg PO Q48 [facility] Last Admin: 10/05/16 10:32 Dose: 20 mg Potassium Chloride 20 meq/ (Sodium Chloride) 1,010 mls @ 100 mls/hr IV .Q10H6M [facility] Last Admin: 10/05/16 23:29 Dose: 100 mls/hr Magnesium Sulfate (Magnesium Sulfate) 2 gm in 50 mls @ 50 mls/hr IV UD PRN PRN Reason: Mag < or = 1.7 Iron Carb/Multivit/Court Administrator/Folic Acid (Multivitamin W/Minerals) 1 tab PO DAILY [facility] Last Admin: 10/05/16 10:32 Dose: 1 tab Isosorbide Mononitrate (Imdur) 30 mg PO DAILY [facility] Last Admin: 10/05/16 10:32 Dose: 30 mg Lactobacillus Rhamnosus (Culturelle) 1 cap PO BID [facility] Last Admin: 10/05/16 21:41 Dose: 1 cap Loperamide HCl (Imodium) 2 mg PO Q2HP PRN PRN Reason: Diarrhea Last Admin: 10/05/16 00:15 Dose: 2 mg Ondansetron HCl (Zofran) 4 mg IV Q6HP PRN PRN Reason: Nausea And Vomiting Melatonin [Melatin] (3 Mg Tablet) 1 dose PO HSP PRN PRN Reason: Insomnia Last Admin: 10/05/16 23:29 Dose: 1 dose Phenazopyridine HCl (Pyridium) 200 mg PO TIDP PRN PRN Reason: Dysuria Last Admin: 10/04/16 10:28 Dose: 200 mg [facility]) [facility] Admin: 10/05/16 18:31 Dose: 15 meq Potassium/Phosphorus/Sodium (Neutra Phos) 2 packet PO BID [facility] Last Admin: 10/05/16 21:42 Dose: 2 packet Psyllium Hydrophilic Mucilloid (Metamucil) 6 gm PO BID [facility] Last Admin: 10/05/16 21:42 Dose: Not Given Sodium Chloride (Saline Flush) 10 ml IV Q8 [facility] Last Admin: 10/06/16 05:00 Dose: Not Given Tamsulosin HCl (Flomax) 0.4 mg PO Q48H [facility] Last Admin: 10/04/16 10:30 Dose: 0.4 mg Vancomycin HCl (Vancomycin Oral Amanda) 250 mg PO QID [facility] Last Admin: 10/05/16 21:42 Dose: 250 mg Vitamin D (Vitamin D3) 2,000 unit PO DAILY [facility] Last Admin: 10/05/16 10:32 Dose: 2,000 unit Medical - PN: A/P - Time Spent With Patient Total time spent is greater than 50% in coordination of care (as documented) at patient's floor/unit and/or counseling patient: 25 - 35 minutes - Narrative A/P Narrative: * C. difficile colitis- continue oral vancomycin for additional 12 days * Severe diarrhea- clinically improving however persistent incontinence. lower crystalloids. DC anti-diarrheal illness * Sepsis-clinically improving . 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 clinically improved and now dementia at baseline. * history of CAD-continue isosorbide/aspirin * low phosphorus on replacement * prophylaxis Lovenox. Heparin * full CODE STATUS plan * Phosphorus replacement * continue Oral vancomycin for additional 12 days * delirium watch/frequent reorientation * discharge to SNF in 24 hours if clinically improved Medical - PN: Qual - VTE Deep Vein Thrombosis/Pulmonary Embolism Present on Admission: No
[2016-10-06] MEDS ORDERED: POTASSIUM CHLORIDE 20 MEQ in 0.45 % SODIUM CHLORIDE 1,000 ML IV SCH (08:30)
[2016-10-06] MEDS: FISH OIL 1,000 MG CAPSULE PO SCH ×2 (08:35→22:09)
[2016-10-06] MEDS: ENOXAPARIN 40 MG/0.4 ML SYRINGE SQ SCH (08:35)
[2016-10-06] MEDS: POTASSIUM CHLORIDE 20 MEQ/15 ML ML PT SCH ×2 (08:35→18:06)
[2016-10-06] MEDS: VITAMIN D3 1,000 UNIT TABLET PO SCH (08:35)
[2016-10-06] MEDS: NEUTRA PHOS 1 PACKET PO SCH ×2 (08:35→22:09)
[2016-10-06] MEDS: PSYLLIUM HUSK 6 GM PACKET PO SCH ×2 (08:35→22:09)
[2016-10-06] MEDS: CALCIUM (OYSTER SHELL) 500 MG TABLET PO SCH (08:35)
[2016-10-06] MEDS: ASPIRIN 81 MG TAB.CHEW PO SCH (08:36)
[2016-10-06] MEDS: MULTIVIT,THER IRON,CA,FA & MIN 1 TABLET PO SCH (08:36)
[2016-10-06] MEDS: ISOSORBIDE MONONITRATE 30 MG TAB.XL.24H PO SCH (08:36)
[2016-10-06] MEDS: ESCITALOPRAM 10 MG TABLET PO SCH (08:36)
[2016-10-06] MEDS: FOLIC ACID 1 MG TABLET PO SCH (08:36)
[2016-10-06] MEDS: VANCOMYCIN ORAL SOL 1,000 MG/10 ML BOTTLE PO SCH ×4 (08:36→22:09)
[2016-10-06] MEDS: LACTOBACILLUS 1 CAPSULE PO SCH ×2 (08:36→22:09)
[2016-10-06] MEDS: TAMSULOSIN 0.4 MG CAPSULE PO SCH (08:45)
[2016-10-06] MEDS: POTASSIUM CHLORIDE 20 MEQ in 0.45 % SODIUM CHLORIDE 1,000 ML IV SCH (09:29)
[2016-10-07] MEDS: 0.9 % SODIUM CHLORIDE 10 ML SYRINGE IV SCH ×3 (05:10→20:37)
[2016-10-07 06:03] LABS: Basophils # (Auto) 0 K/mcL (0.0-0.3); Basophils % (Auto) 0.3 % (0.0-2.0); Eosinophils # (Auto) 0.3 K/mcL (0.0-0.7); Eosinophils % (Auto) 4.3 % (0.0-7.0); Lymphocytes # (Auto) 0.7 K/mcL (1.5-4.8); Lymphocytes % (Auto) 10.9 % (15.5-49.0); Mean Cell Volume 96.7 fL (80.0-100.0); Mean Corpuscular HGB Conc 35.2 g/dL (31.0-36.0); Mean Corpuscular Hemoglobin 34.1 pg (26.0-34.0); Monocytes # (Auto) 0.9 K/mcL (0.1-0.9); Monocytes % (Auto) 13.5 % (1.0-12.0); Platelet Count 197 K/mcL (140-440); RBC 4.27 M/mcL (4.50-5.90); Red Cell Distribution Width 14.5 % (11.5-14.5)
[2016-10-07 06:30] LABS: ALT/SGPT 16 U/l (0-40); Albumin 2.9 gm/dL (3.2-5.2); Albumin/Globulin Ratio 1.1 (1.0-2.3); Alkaline Phosphatase 65 U/L (39-117); Bilirubin,Direct < 0.2 mg/dL (0.0-0.3); Blood Urea Nitrogen 8 mg/dl (8-23); Gamma Glutamyl Transpeptidase 11 U/L (8-61); Magnesium 1.9 mg/dL (1.6-2.5); Uric Acid 3.4 mg/dL (2.5-8.0)
[2016-10-07] MEDS: VANCOMYCIN ORAL SOL 1,000 MG/10 ML BOTTLE PO SCH ×4 (08:08→20:51)
[2016-10-07] MEDS: NEUTRA PHOS 1 PACKET PO SCH ×2 (08:08→20:50)
[2016-10-07] MEDS: POTASSIUM CHLORIDE 20 MEQ/15 ML ML PT SCH ×2 (08:08→17:40)
[2016-10-07] MEDS: ISOSORBIDE MONONITRATE 30 MG TAB.XL.24H PO SCH (08:09)
[2016-10-07] MEDS: FISH OIL 1,000 MG CAPSULE PO SCH ×2 (08:09→20:51)
[2016-10-07] MEDS: ESCITALOPRAM 10 MG TABLET PO SCH (08:09)
[2016-10-07] MEDS: FOLIC ACID 1 MG TABLET PO SCH (08:09)
[2016-10-07] MEDS: LACTOBACILLUS 1 CAPSULE PO SCH ×2 (08:09→20:50)
[2016-10-07] MEDS: DUTASTERIDE 0.5 MG CAPSULE PO SCH (08:09)
[2016-10-07] MEDS: ENOXAPARIN 40 MG/0.4 ML SYRINGE SQ SCH (08:10)
[2016-10-07] MEDS: ASPIRIN 81 MG TAB.CHEW PO SCH (08:10)
[2016-10-07] MEDS: MULTIVIT,THER IRON,CA,FA & MIN 1 TABLET PO SCH (08:10)
[2016-10-07] MEDS: VITAMIN D3 1,000 UNIT TABLET PO SCH (08:10)
[2016-10-07] MEDS: FUROSEMIDE 20 MG TABLET PO SCH (08:10)
[2016-10-07] MEDS: CALCIUM (OYSTER SHELL) 500 MG TABLET PO SCH (08:10)
[2016-10-07] MEDS: PSYLLIUM HUSK 6 GM PACKET PO SCH ×2 (08:11→20:51)
[2016-10-07] MEDS ORDERED: traZODone HCL 50 MG TABLET PO PRN ×2 (09:00→14:26)
[2016-10-07] MEDS ORDERED: NITROGLYCERIN 0.4 MG TAB.SUBL SL PRN ×2 (13:19→14:26)
[2016-10-07] MEDS ORDERED: ASPIRIN 81 MG TAB.CHEW CHEWED ONE ×2 (13:19→14:26)
[2016-10-07] MEDS ORDERED: 0.9 % SODIUM CHLORIDE 1,000 ML IV ONE ×2 (13:27→14:26)
[2016-10-07] MEDS ORDERED: 0.9 % SODIUM CHLORIDE 1,000 ML IV SCH ×2 (13:30→14:26)
[2016-10-07 14:01] LABS: Basophils # (Auto) 0 K/mcL (0.0-0.3); Basophils % (Auto) 0.4 % (0.0-2.0); Eosinophils # (Auto) 0.2 K/mcL (0.0-0.7); Eosinophils % (Auto) 2.8 % (0.0-7.0); Granulocytes % (Auto) 75.4 % (38.0-78.0); Lymphocytes # (Auto) 0.7 K/mcL (1.5-4.8); Lymphocytes % (Auto) 11.3 % (15.5-49.0); Mean Cell Volume 95.1 fL (80.0-100.0); Mean Corpuscular HGB Conc 34.3 g/dL (31.0-36.0); Mean Corpuscular Hemoglobin 32.6 pg (26.0-34.0); Monocytes # (Auto) 0.7 K/mcL (0.1-0.9); Monocytes % (Auto) 10.1 % (1.0-12.0); Platelet Count 215 K/mcL (140-440); RBC 4.59 M/mcL (4.50-5.90)
--- NOTE | 2016-10-07 14:06 | XRay Report ---
CLINICAL INFORMATION: Dyspnea. Altered mental status. TECHNIQUE: AP portable chest x-ray COMPARISON: 10/03/2016, 04/30/2016, 09/14/2013 FINDINGS: Slightly elevated right hemidiaphragm. Lungs are negative. No parenchymal infiltrate or mass. Heart size and vascularity are normal. No pulmonary edema. No pulmonary congestion. No acute abnormality. No significant interval change since 10/03/2016 IMPRESSION: No acute or focal abnormality Interpreted and Authenticated by: Elder Carmona 10/07/16
[2016-10-07 14:22] LABS: ALT/SGPT 16 U/l (0-40); Albumin 3.1 gm/dL (3.2-5.2); Albumin/Globulin Ratio 1.1 (1.0-2.3); Alkaline Phosphatase 63 U/L (39-117); Blood Urea Nitrogen 9 mg/dl (8-23); Creatine Kinase 40 IU/L (24-195); Creatine Kinase MB 1.9 ng/ml (0-4.9)
[2016-10-07] MEDS ORDERED: ACETAMINOPHEN W/CODEINE #3 1 TABLET PO PRN (14:26)
[2016-10-07] MEDS ORDERED: MAGNESIUM SULFATE 2 GM/50 ML BAG IV PRN (14:26)
[2016-10-07] MEDS ORDERED: PHENAZOPYRIDINE 200 MG TABLET PO PRN (14:26)
[2016-10-07] MEDS ORDERED: CALCIUM CARBONATE 500 MG TAB.CHEW CHEWED PRN (14:26)
[2016-10-07] MEDS ORDERED: ACETAMINOPHEN 325 MG TABLET PO PRN (14:26)
[2016-10-07] MEDS ORDERED: ONDANSETRON 4 MG/2 ML VIAL IV PRN (14:26)
[2016-10-07] MEDS ORDERED: MELATONIN 3 MG PO PRN (14:26)
[2016-10-07 14:39] LABS: Myoglobin 49 ng/ml (28-72)
[2016-10-07 14:42] LABS: ALT/SGPT 16 U/l (0-40); Albumin 3.1 gm/dL (3.2-5.2); Albumin/Globulin Ratio 1.2 (1.0-2.3); Alkaline Phosphatase 63 U/L (39-117); Bilirubin,Direct < 0.2 mg/dL (0.0-0.3); Blood Urea Nitrogen 9 mg/dl (8-23); Gamma Glutamyl Transpeptidase 12 U/L (8-61); Uric Acid 3.7 mg/dL (2.5-8.0)
--- NOTE | 2016-10-07 16:58 | Internal Med Progress Note ---
Medical - PN: Subj Patient information: Note initiated : 10/07/16 at 4:56 pm Service Date, if different from initiated Date: [] Patient: Se Luz 86 y/o M admitted on 10/03/16 for altered mental status. Chief Complaint: [] Interval history: October 04, 2015: History of present illness: Mr. Luz is a 86 year old man who is known to have progressive dementia. He apparently was diagnosed with urinary tract infection several weeks ago, and had a Chen catheter as well. His says he was on antibiotics for the full 3 weeks that he had the catheter, and then another week after the catheter was removed. He just finished his antibiotics yesterday. He does have dementia, and recently was placed at the [facility], permanently. She visits him daily. She says that this morning he had a formed bowel movement, and seemed in his normal state, which is that he does recognize her, but is often confused and forgetful. Somewhere around lunchtime, he suddenly started having severe diarrhea. He then seemed to get a lot more confused. He was brought to the emergency room for evaluation. In the ER, he was incontinent of liquid stool. C. difficile screen was sent, and was positive. White blood cell count is markedly elevated. He is also febrile. He is now admitted for treatment of C. difficile colitis, and Sirs syndrome. He is unable to participate in a history, and is mostly nonverbal. He keeps his eyes closed during most of the interview. His reports that he has had a difficult time settling in at the [facility], because of all the bladder issues. However, prior to today, she is not aware that he was having any fever or chills. He has not complained of headaches or dizziness, new eye or ear symptoms, or throat or cough, chest pain or palpitations, shortness of breath. Prior to today he was not having any abdominal pain, nausea or vomiting, diarrhea or constipation. She does not believe he had vomiting today. She says since the catheter was removed, he seems to be voiding adequately. October 04: Today, the patient is awake and alert. He states he is feeling much better. The volume of his diarrhea stools has decreased markedly overnight. He does seem a little bit confused, and tends to answer yes to questions about chest pain and shortness of breath and abdominal pain, but then cannot really describe them. Otherwise, he denies subjective fever chills, headaches or dizziness, sore throat or cough, nausea or vomiting, dysuria. -Nurses report post void residual today was less than 150 mL. October 05- mproving C. difficile diarrhea with downtrending white count from 22, 800-12.1. Diarrhea has significantly improved. case discussed with family. family concerned about significant hallucinations and delirious behavior along with leg cramps. continue aggressive electrolyte replacement potassium and phosphorus/magnesium. continue physical therapy. Anticipate discharge in 48 hours once clinically improved. No concerns expressed by nursing staff. No overnight fever chills. delirium watch and avoid opioids. October 06- patient clinically improved. White count down to 8.7. incontinent but improved diarrhea. No fever chills. Hallucinations have improved since yesterday. Dementia appears to be at baseline. As per and family patient is still weak. We await further physical therapy recommendations. Patient would likely transfer to a care center in 24 hours on continued oral vancomycin. continue oral phosphorus replacement. October 07: Pt seen examined, 9 episodes of either liquid stools or incontinence over last 24 hrs, improving this AM, able to tolerate po ok, This afternoon was weakn and had borderline low bp with drowsiness. He complained of headache, chest pain and abdominal pain. glucose was 158, bp with systolic around 90, ekg done which showed sinus rhythm , lad alfb, no new changes from old, CXR neg, labs neg, trop neg. patient was given fluids, asa, oxygen and the patient responded in a couple of hours and feels back to baseline. likely dehydration casued his weakness He also has issue with anxiety, in the hospital and we have started him on trazadone 50qhs. Pertinent ROS: Denies headache, dizziness Denies chest pain, palpitations Denies cough or shortness of breath Denies abdominal pain, nausea or vomiting. (complained of abdominal pain, chest pain, headache in afternoon was drows, but denied any complaints later) - Constitutional Vitals: Vital Signs Temp Pulse Resp BP Pulse Ox 97.3 F 85 20 111/63 98 10/07/16 12:00 10/07/16 04:00 10/07/16 13:19 10/07/16 12:00 10/07/16 13:19 Period Temp Pulse Resp BP Sys/Cheng Pulse Ox Last 24 Hr 97.2 F-97.7 F 66-85 16-20 108-120/60-63 92-98 Intake and Output 10/07/16 10/07/16 10/07/16 05:59 13:59 21:59 Intake Total 800 / 800 Output Total 403 / 403 104 / 104 Balance -403 / -403 696 / 696 -1 Intake & Output: Intake & Output 10/07/16 10/07/16 10/07/16 05:59 13:59 21:59 Intake Total 800 / 800 Output Total 403 / 403 104 / 104 Balance -403 / -403 696 / 696 -1 Intake: Oral 800 / 800 Output: Void Amount 400 / 400 100 / 100 # of times incontinent of 3 / 3 4 / 4 urine Other: # Voids 1 # Bowel Movements 1 # of times incontinent of 1 2 Bowels Exam: Constitutional; Afebrile, cooperative, alert, not in distress. Dry mucosa Eyes- No icterus, , No periorbital swelling Ears- Ext ear normal, hearing hard to conversation. Neck- Midline trachea, supple Respiratory system: Air Entry equal on both sides, No crackles or wheezing, no rhonchi. CVS- Rate rhythm regular, S1,S2 heard, no gallop, no rub. Abdomen- Soft nontender abdomen, no organomegaly, no tenderness, no guarding or rigidity, BOND BROKER- AOOx2, moving all extremities, no gross focal deficit noted. Medical - PN: Obj Da - Labs CBC & Chem 7: 10/07/16 13:32 10/07/16 13:31 Labs: Abnormal Lab Results 10/07/16 10/07/16 10/07/16 13:32 13:31 13:00 WBC RBC Hct MCH RDW 15.0 H Gran % Lymph % (Auto) 11.3 L [place] % (Auto) Gran # Lymph # (Auto) 0.7 L Carbon Dioxide BUN Creatinine Glucose 131 H 130 H Calcium Phosphorus Total Protein 5.8 L 5.7 L Albumin 3.1 L 3.1 L 10/07/16 10/07/16 10/06/16 03:05 03:05 03:30 WBC RBC 4.27 L Hct MCH 34.1 H RDW Gran % Lymph % (Auto) 10.9 L [place] % (Auto) 13.5 H Gran # Lymph # (Auto) 0.7 L Carbon Dioxide 21 L BUN 7 L Creatinine 0.6 L 0.6 L Glucose Calcium 8.4 L 8.1 L Phosphorus 1.7 L Total Protein 5.5 L 5.0 L Albumin 2.9 L 2.8 L 10/06/16 10/05/16 10/05/16 03:30 04:31 04:31 WBC 12.1 H RBC 4.04 L 4.10 L Hct 39.4 L 40.0 L MCH 34.1 H RDW 14.7 H 14.9 H Gran % 78.5 H 88.2 H Lymph % (Auto) 7.6 L 4.3 L [place] % (Auto) Gran # 10.7 H Lymph # (Auto) 0.7 L 0.5 L Carbon Dioxide BUN Creatinine Glucose Calcium 8.0 L Phosphorus 1.6 L Total Protein 4.9 L Albumin 2.7 L Meds: Medications Acetaminophen (Tylenol) 650 mg PO Q6HP PRN PRN Reason: PAIN/FEVER > 101 Acetaminophen/Codeine Phosphate (Tylenol #3) 1 tab PO Q4HP PRN PRN Reason: Pain Aspirin (Aspirin) 81 mg PO DAILY [facility] Calcium Carbonate/Glycine (Oscal) 500 mg PO DAILY [facility] Calcium Carbonate/Glycine (Tums) 1,000 mg CHEWED Q4HP PRN PRN Reason: Dyspepsia Dutasteride (Avodart) 0.5 mg PO Q48H [facility] Enoxaparin Sodium (Lovenox) 40 mg SQ DAILY [facility] Escitalopram Oxalate (Lexapro) 10 mg PO QDAY [facility] Fish Oil (Fish Oil) 1,000 mg PO BID [facility] Folic Acid (Folic Acid) 1 mg PO QDAY [facility] Furosemide (Lasix) 20 mg PO Q48 [facility] Magnesium Sulfate (Magnesium Sulfate) 2 gm in 50 mls @ 50 mls/hr IV UD PRN PRN Reason: Mag < or = 1.7 Sodium Chloride (Sodium Chloride 0.9%) 1,000 mls @ 0 mls/hr IV .Q0M [facility] PRN Reason: KVO Iron Carb/Multivit/[place]/Folic Acid (Multivitamin W/Minerals) 1 tab PO DAILY [facility] Isosorbide Mononitrate (Imdur) 30 mg PO DAILY [facility] Lactobacillus Rhamnosus (Culturelle) 1 cap PO BID [facility] Nitroglycerin (Nitrostat) 0.4 mg SL Q5M PRN PRN Reason: Chest Pain Ondansetron HCl (Zofran) 4 mg IV Q6HP PRN PRN Reason: Nausea And Vomiting Melatonin [Melatin] (3 Mg Tablet) 1 dose PO HSP PRN PRN Reason: Insomnia Phenazopyridine HCl (Pyridium) 200 mg PO TIDP PRN PRN Reason: Dysuria Potassium Chloride (Potassium Chloride) 15 meq PT BIDCC [facility] Potassium/Phosphorus/Sodium (Neutra Phos) 2 packet PO BID [facility] Psyllium Hydrophilic Mucilloid (Metamucil) 6 gm PO BID [facility] Sodium Chloride (Saline Flush) 10 ml IV Q8 [facility] Tamsulosin HCl (Flomax) 0.4 mg PO Q48H [facility] Trazodone HCl (Desyrel) 12.5 mg PO BID PRN PRN Reason: anxiety. Trazodone HCl (Desyrel) 50 mg PO HS [facility] Vancomycin HCl (Vancomycin Oral Amanda) 250 mg PO QID [facility] Vitamin D (Vitamin D3) 2,000 unit PO DAILY [facility] Medical - PN: A/P - Time Spent With Patient Total time spent is greater than 50% in coordination of care (as documented) at patient's floor/unit and/or counseling patient: - Narrative A/P Narrative: A/P Cdiff colitis: still having diarrhea, continue with po vancomycin, Sepsis : improving wbc resolved Dehydration: Resume IV fluids for now. Delirum: due to infection, dementia. monitor, conservative management h/o CAD on asa and isosorbide, monitor, ekg, trop is neg, DVT prophylaxis, on lovenox Full code * Medical - PN: Qual - VTE Deep Vein Thrombosis/Pulmonary Embolism Present on Admission: No
[2016-10-07] MEDS: 0.9 % SODIUM CHLORIDE 1,000 ML IV SCH (17:35)
[2016-10-07] MEDS ORDERED: traZODone HCL 50 MG TABLET PO SCH ×2 (21:00)
[2016-10-08] MEDS: 0.9 % SODIUM CHLORIDE 1,000 ML IV SCH ×3 (03:33→23:30)
[2016-10-08] MEDS: 0.9 % SODIUM CHLORIDE 10 ML SYRINGE IV SCH ×3 (05:07→21:07)
[2016-10-08 06:20] LABS: Basophils # (Auto) 0 K/mcL (0.0-0.3); Basophils % (Auto) 0.2 % (0.0-2.0); Eosinophils # (Auto) 0.4 K/mcL (0.0-0.7); Eosinophils % (Auto) 7.4 % (0.0-7.0); Granulocytes % (Auto) 63.4 % (38.0-78.0); Lymphocytes # (Auto) 0.7 K/mcL (1.5-4.8); Lymphocytes % (Auto) 13.2 % (15.5-49.0); Mean Cell Volume 97.2 fL (80.0-100.0); Mean Corpuscular HGB Conc 34.3 g/dL (31.0-36.0); Mean Corpuscular Hemoglobin 33.3 pg (26.0-34.0); Monocytes # (Auto) 0.8 K/mcL (0.1-0.9); Monocytes % (Auto) 15.8 % (1.0-12.0); Platelet Count 206 K/mcL (140-440); RBC 4.35 M/mcL (4.50-5.90); Red Cell Distribution Width 14.8 % (11.5-14.5)
[2016-10-08 06:31] LABS: ALT/SGPT 15 U/l (0-40); Albumin/Globulin Ratio 1.3 (1.0-2.3); Alkaline Phosphatase 60 U/L (39-117); Bilirubin,Direct < 0.2 mg/dL (0.0-0.3); Blood Urea Nitrogen 7 mg/dl (8-23); Gamma Glutamyl Transpeptidase 15 U/L (8-61); Magnesium 1.9 mg/dL (1.6-2.5); Uric Acid 3.4 mg/dL (2.5-8.0)
[2016-10-08] MEDS ORDERED: TAMSULOSIN 0.4 MG CAPSULE PO SCH (09:00)
[2016-10-08] MEDS: NEUTRA PHOS 1 PACKET PO SCH ×2 (09:33→20:59)
[2016-10-08] MEDS: FOLIC ACID 1 MG TABLET PO SCH (09:34)
[2016-10-08] MEDS: MULTIVIT,THER IRON,CA,FA & MIN 1 TABLET PO SCH (09:34)
[2016-10-08] MEDS: POTASSIUM CHLORIDE 20 MEQ/15 ML ML PT SCH (09:34)
[2016-10-08] MEDS: ESCITALOPRAM 10 MG TABLET PO SCH (09:34)
[2016-10-08] MEDS: FISH OIL 1,000 MG CAPSULE PO SCH ×2 (09:34→21:00)
[2016-10-08] MEDS: CALCIUM (OYSTER SHELL) 500 MG TABLET PO SCH (09:34)
[2016-10-08] MEDS: ISOSORBIDE MONONITRATE 30 MG TAB.XL.24H PO SCH (09:35)
[2016-10-08] MEDS: DUTASTERIDE 0.5 MG CAPSULE PO SCH (09:35)
[2016-10-08] MEDS: ASPIRIN 81 MG TAB.CHEW PO SCH (09:35)
[2016-10-08] MEDS: LACTOBACILLUS 1 CAPSULE PO SCH ×2 (09:36→21:05)
[2016-10-08] MEDS: ENOXAPARIN 40 MG/0.4 ML SYRINGE SQ SCH (09:36)
[2016-10-08] MEDS: VANCOMYCIN ORAL SOL 1,000 MG/10 ML BOTTLE PO SCH ×3 (09:36→21:06)
[2016-10-08] MEDS: PSYLLIUM HUSK 6 GM PACKET PO SCH ×2 (09:36→21:04)
[2016-10-08] MEDS: VITAMIN D3 1,000 UNIT TABLET PO SCH (09:37)
--- NOTE | 2016-10-08 11:07 | Internal Med Progress Note ---
Medical - PN: Subj Patient information: Note initiated : 10/08/16 at 11:04 am Service Date, if different from initiated Date: [] Patient: Se Luz 86 y/o M admitted on 10/03/16 for altered mental status. Chief Complaint: [] Interval history: October 04, 2015: History of present illness: Mr. Luz is a 86 year old man who is known to have progressive dementia. He apparently was diagnosed with urinary tract infection several weeks ago, and had a Chen catheter as well. His says he was on antibiotics for the full 3 weeks that he had the catheter, and then another week after the catheter was removed. He just finished his antibiotics yesterday. He does have dementia, and recently was placed at the [facility], permanently. She visits him daily. She says that this morning he had a formed bowel movement, and seemed in his normal state, which is that he does recognize her, but is often confused and forgetful. Somewhere around lunchtime, he suddenly started having severe diarrhea. He then seemed to get a lot more confused. He was brought to the emergency room for evaluation. In the ER, he was incontinent of liquid stool. C. difficile screen was sent, and was positive. White blood cell count is markedly elevated. He is also febrile. He is now admitted for treatment of C. difficile colitis, and Sirs syndrome. He is unable to participate in a history, and is mostly nonverbal. He keeps his eyes closed during most of the interview. His reports that he has had a difficult time settling in at the [facility], because of all the bladder issues. However, prior to today, she is not aware that he was having any fever or chills. He has not complained of headaches or dizziness, new eye or ear symptoms, or throat or cough, chest pain or palpitations, shortness of breath. Prior to today he was not having any abdominal pain, nausea or vomiting, diarrhea or constipation. She does not believe he had vomiting today. She says since the catheter was removed, he seems to be voiding adequately. October 04: Today, the patient is awake and alert. He states he is feeling much better. The volume of his diarrhea stools has decreased markedly overnight. He does seem a little bit confused, and tends to answer yes to questions about chest pain and shortness of breath and abdominal pain, but then cannot really describe them. Otherwise, he denies subjective fever chills, headaches or dizziness, sore throat or cough, nausea or vomiting, dysuria. -Nurses report post void residual today was less than 150 mL. October 05- mproving C. difficile diarrhea with downtrending white count from 22, 800-12.1. Diarrhea has significantly improved. case discussed with family. family concerned about significant hallucinations and delirious behavior along with leg cramps. continue aggressive electrolyte replacement potassium and phosphorus/magnesium. continue physical therapy. Anticipate discharge in 48 hours once clinically improved. No concerns expressed by nursing staff. No overnight fever chills. delirium watch and avoid opioids. October 06- patient clinically improved. White count down to 8.7. incontinent but improved diarrhea. No fever chills. Hallucinations have improved since yesterday. Dementia appears to be at baseline. As per and family patient is still weak. We await further physical therapy recommendations. Patient would likely transfer to a care center in 24 hours on continued oral vancomycin. continue oral phosphorus replacement. October 07: Pt seen examined, 9 episodes of either liquid stools or incontinence over last 24 hrs, improving this AM, able to tolerate po ok, This afternoon was weakn and had borderline low bp with drowsiness. He complained of headache, chest pain and abdominal pain. glucose was 158, bp with systolic around 90, ekg done which showed sinus rhythm , lad alfb, no new changes from old, CXR neg, labs neg, trop neg. patient was given fluids, asa, oxygen and the patient responded in a couple of hours and feels back to baseline. likely dehydration casued his weakness He also has issue with anxiety, in the hospital and we have started him on trazadone 50qhs. October 08: Pt seen examined, admitted for cdiff, wbc improving, but dominga having liquid stools , had 3 episodes last night, one large this AM, was drowsy overnight, likelyi from use of trazodone, (will cut back dosing to 25qhs) otherwise this AM was doing well, no cp. sob, able to tolerate po diet well Plan to wean off oxygen, and await resolution of Cdiff diarrhea so can be safely discharged. labs reviewed Pertinent ROS: Denies headache, dizziness Denies chest pain, palpitations Denies cough or shortness of breath Denies abdominal pain, nausea or vomiting. Diarrhea present - Constitutional Vitals: Vital Signs Temp Pulse Resp BP Pulse Ox 98.2 F 64 18 112/64 95 10/08/16 08:00 10/08/16 08:00 10/08/16 08:00 10/08/16 08:00 10/08/16 08:00 Period Temp Pulse Resp BP Sys/Cheng Pulse Ox Last 24 Hr 97.2 F-98.2 F 60-64 16-20 111-132/63-76 95-98 Intake and Output 10/07/16 10/08/16 10/08/16 21:59 05:59 13:59 Intake Total 997 / 997 Output Total 101 / 101 701 / 701 Balance -101 / -101 296 / 296 Weight 132 lb 8 oz Intake & Output: Intake & Output 10/07/16 10/08/16 10/08/16 21:59 05:59 13:59 Intake Total 997 / 997 Output Total 101 / 101 701 / 701 Balance -101 / -101 296 / 296 Weight 132 lb 8 oz Intake: IV 997 / 997 Sodium Chloride 0.9% 1, 997 / 997 000 ml @ 100 mls/hr IV . Q10H RITCHIE Rx#:[id number] Output: Void Amount 100 / 100 700 / 700 # of times incontinent of 1 / 1 1 / 1 urine Other: # Voids 1 1 # of times incontinent of 2 1 Bowels Exam: Constitutional; Afebrile, cooperative, alert, not in distress. Eyes- No icterus, , No periorbital swelling Ears- Ext ear normal, hearing normal to conversation. Neck- Midline trachea, supple Respiratory system: Air Entry equal on both sides, No crackles or wheezing, no rhonchi. CVS- Rate rhythm regular, S1,S2 heard, no gallop, no rub. Abdomen- Soft nontender abdomen, no organomegaly, no tenderness, no guarding or rigidity, RIGGER- AOOx2, moving all extremities, no gross focal deficit noted. Medical - PN: Obj Da - Labs CBC & Chem 7: 10/08/16 03:40 10/08/16 03:40 Labs: Abnormal Lab Results 10/08/16 10/08/16 10/07/16 03:40 03:40 13:32 RBC 4.35 L Hct MCH RDW 14.8 H 15.0 H Gran % Lymph % (Auto) 13.2 L 11.3 L [place] % (Auto) 15.8 H Eos % (Auto) 7.4 H Lymph # (Auto) 0.7 L 0.7 L Carbon Dioxide BUN 7 L Creatinine 0.5 L Glucose Calcium 8.4 L Phosphorus Total Protein 5.4 L Albumin 3.0 L 10/07/16 10/07/16 10/07/16 13:31 13:00 03:05 RBC Hct MCH RDW Gran % Lymph % (Auto) [place] % (Auto) Eos % (Auto) Lymph # (Auto) Carbon Dioxide BUN Creatinine 0.6 L Glucose 131 H 130 H Calcium 8.4 L Phosphorus Total Protein 5.8 L 5.7 L 5.5 L Albumin 3.1 L 3.1 L 2.9 L 10/07/16 10/06/16 10/06/16 03:05 03:30 03:30 RBC 4.27 L 4.04 L Hct 39.4 L MCH 34.1 H 34.1 H RDW 14.7 H Gran % 78.5 H Lymph % (Auto) 10.9 L 7.6 L [place] % (Auto) 13.5 H Eos % (Auto) Lymph # (Auto) 0.7 L 0.7 L Carbon Dioxide 21 L BUN 7 L Creatinine 0.6 L Glucose Calcium 8.1 L Phosphorus 1.7 L Total Protein 5.0 L Albumin 2.8 L Meds: Medications Acetaminophen (Tylenol) 650 mg PO Q6HP PRN PRN Reason: PAIN/FEVER > 101 Acetaminophen/Codeine Phosphate (Tylenol #3) 1 tab PO Q4HP PRN PRN Reason: Pain Aspirin (Aspirin) 81 mg PO DAILY [facility], [facility] Last Admin: 10/08/16 09:35 Dose: 81 mg Calcium Carbonate/Glycine (Oscal) 500 mg PO DAILY [facility], [facility] Last Admin: 10/08/16 09:34 Dose: 500 mg Calcium Carbonate/Glycine (Tums) 1,000 mg CHEWED Q4HP PRN PRN Reason: Dyspepsia Dutasteride (Avodart) 0.5 mg PO Q48H [facility] Enoxaparin Sodium (Lovenox) 40 mg SQ DAILY [facility] Last Admin: 10/08/16 09:36 Dose: 40 mg Escitalopram Oxalate (Lexapro) 10 mg PO QDAY [facility] Last Admin: 10/08/16 09:34 Dose: 10 mg Fish Oil (Fish Oil) 1,000 mg PO BID [facility] Last Admin: 10/08/16 09:34 Dose: 1,000 mg Folic Acid (Folic Acid) 1 mg PO QDAY [facility] Last Admin: 10/08/16 09:34 Dose: 1 mg Furosemide (Lasix) 20 mg PO Q48 [facility] Magnesium Sulfate (Magnesium Sulfate) 2 gm in 50 mls @ 50 mls/hr IV UD PRN PRN Reason: Mag < or = 1.7 Sodium Chloride (Sodium Chloride 0.9%) 1,000 mls @ 0 mls/hr IV .Q0M RITCHIE PRN Reason: KVO Sodium Chloride (Sodium Chloride 0.9%) 1,000 mls @ 100 mls/hr IV .Q10H [facility] Last Admin: 10/08/16 03:33 Dose: 100 mls/hr Iron Carb/Multivit/[place]/Folic Acid (Multivitamin W/Minerals) 1 tab PO DAILY [facility] Last Admin: 10/08/16 09:34 Dose: 1 tab Isosorbide Mononitrate (Imdur) 30 mg PO DAILY [facility] Last Admin: 10/08/16 09:35 Dose: 30 mg Lactobacillus Rhamnosus (Culturelle) 1 cap PO BID [facility] Last Admin: 10/08/16 09:36 Dose: 1 cap Nitroglycerin (Nitrostat) 0.4 mg SL Q5M PRN PRN Reason: Chest Pain Ondansetron HCl (Zofran) 4 mg IV Q6HP PRN PRN Reason: Nausea And Vomiting Melatonin [Melatin] (3 Mg Tablet) 1 dose PO HSP PRN PRN Reason: Insomnia Phenazopyridine HCl (Pyridium) 200 mg PO TIDP PRN PRN Reason: Dysuria Potassium Chloride (Potassium Chloride) 15 meq PT BIDCC [facility] Last Admin: 10/08/16 09:34 Dose: 15 meq Potassium/Phosphorus/Sodium (Neutra Phos) 2 packet PO BID [facility] Last Admin: 10/08/16 09:33 Dose: 2 packet Psyllium Hydrophilic Mucilloid (Metamucil) 6 gm PO BID [facility] Last Admin: 10/08/16 09:36 Dose: 6 gm Sodium Chloride (Saline Flush) 10 ml IV Q8 [facility] Last Admin: 10/08/16 05:07 Dose: Not Given Tamsulosin HCl (Flomax) 0.4 mg PO Q48H [facility] Last Admin: 10/08/16 09:36 Dose: 0.4 mg Trazodone HCl (Desyrel) 12.5 mg PO BID PRN PRN Reason: anxiety. Trazodone HCl (Desyrel) 50 mg PO HS [facility] Last Admin: 10/07/16 20:50 Dose: 50 mg Vancomycin HCl (Vancomycin Oral Amanda) 250 mg PO QID [facility] Last Admin: 10/08/16 09:36 Dose: 250 mg Vitamin D (Vitamin D3) 2,000 unit PO DAILY [facility] Last Admin: 10/08/16 09:37 Dose: 2,000 unit Medical - PN: A/P - Time Spent With Patient Total time spent is greater than 50% in coordination of care (as documented) at patient's floor/unit and/or counseling patient: - Narrative A/P Narrative: A/P Cdiff colitis: still having diarrhea, continue with po vancomycin, also on lactobacillus. Sepsis : improving wbc resolved Dehydration: Resolved. Good PO intake, hold off IV fluids for now and monitor. Delirum: due to infection, dementia. monitor, conservative management, started on trazodone qhs to help sleep, will use lower dose of 25qhs h/o CAD on asa and isosorbide, monitor, ekg, trop is neg, DVT prophylaxis, on lovenox Full code * Medical - PN: Qual - VTE Deep Vein Thrombosis/Pulmonary Embolism Present on Admission: No
[2016-10-08] MEDS ORDERED: traZODone HCL 50 MG TABLET PO SCH (21:00)
[2016-10-09] MEDS: 0.9 % SODIUM CHLORIDE 10 ML SYRINGE IV SCH (05:46)
[2016-10-09] MEDS: POTASSIUM CHLORIDE 20 MEQ/15 ML ML PT SCH ×2 (06:25→09:01)
[2016-10-09] MEDS: VANCOMYCIN ORAL SOL 1,000 MG/10 ML BOTTLE PO SCH ×3 (06:25→12:54)
[2016-10-09 06:27] LABS: Basophils # (Auto) 0 K/mcL (0.0-0.3); Basophils % (Auto) 0.3 % (0.0-2.0); Eosinophils # (Auto) 0.4 K/mcL (0.0-0.7); Eosinophils % (Auto) 7.4 % (0.0-7.0); Granulocytes % (Auto) 60.4 % (38.0-78.0); Lymphocytes # (Auto) 0.8 K/mcL (1.5-4.8); Lymphocytes % (Auto) 14.3 % (15.5-49.0); Mean Cell Volume 95.8 fL (80.0-100.0); Mean Corpuscular Hemoglobin 33.5 pg (26.0-34.0); Monocytes % (Auto) 17.6 % (1.0-12.0); Platelet Count 239 K/mcL (140-440); RBC 4.48 M/mcL (4.50-5.90); Red Cell Distribution Width 14.8 % (11.5-14.5)
[2016-10-09 07:15] LABS: ALT/SGPT 21 U/l (0-40); Albumin 3.2 gm/dL (3.2-5.2); Albumin/Globulin Ratio 1.3 (1.0-2.3); Alkaline Phosphatase 63 U/L (39-117); Bilirubin,Direct < 0.2 mg/dL (0.0-0.3); Blood Urea Nitrogen 8 mg/dl (8-23); Gamma Glutamyl Transpeptidase 13 U/L (8-61); Uric Acid 3.6 mg/dL (2.5-8.0)
[2016-10-09] MEDS ORDERED: FUROSEMIDE 20 MG TABLET PO SCH (09:00)
[2016-10-09] MEDS ORDERED: DUTASTERIDE 0.5 MG CAPSULE PO SCH (09:00)
[2016-10-09] MEDS: NEUTRA PHOS 1 PACKET PO SCH (09:01)
[2016-10-09] MEDS: ENOXAPARIN 40 MG/0.4 ML SYRINGE SQ SCH (09:01)
[2016-10-09] MEDS: LACTOBACILLUS 1 CAPSULE PO SCH (09:01)
[2016-10-09] MEDS: PSYLLIUM HUSK 6 GM PACKET PO SCH (09:01)
[2016-10-09] MEDS: ASPIRIN 81 MG TAB.CHEW PO SCH (09:02)
[2016-10-09] MEDS: FISH OIL 1,000 MG CAPSULE PO SCH (09:03)
[2016-10-09] MEDS: FOLIC ACID 1 MG TABLET PO SCH (09:03)
[2016-10-09] MEDS: CALCIUM (OYSTER SHELL) 500 MG TABLET PO SCH (09:03)
[2016-10-09] MEDS: VITAMIN D3 1,000 UNIT TABLET PO SCH (09:03)
[2016-10-09] MEDS: ISOSORBIDE MONONITRATE 30 MG TAB.XL.24H PO SCH (09:03)
[2016-10-09] MEDS: MULTIVIT,THER IRON,CA,FA & MIN 1 TABLET PO SCH (09:03)
[2016-10-09] MEDS: ESCITALOPRAM 10 MG TABLET PO SCH (09:03)
--- NOTE | 2016-10-09 11:06 | Discharge Summary ---
Medical - DS: Prov Patient information: Note initiated : 10/09/16 at 11:03 am Service Date, if different from initiated Date: [] Patient: Se Luz 86 y/o M admitted on 10/03/16 for altered mental status. Chief Complaint: [] Date of admission: 10/03/16 17:45 Discharge date: 10/09/16 Primary care physician: Desmond Jackson Admitting clinician: Delia Blake Discharging clinician: Tamica Gallegos Medical - DS: Meds - Discharge Medications Prescriptions: Tamsulosin HCl [Flomax] 0.4 mg PO BID #60 cap.er.24h Tamsulosin HCl [Flomax] 0.4 mg PO DAILY #30 cap.er.24h Active and Home Medications: Home Medications aspirin 81 mg tablet,delayed release 81 mg PO QDAY tab 09/25/14 [History Confirmed 10/03/16 Last Taken 10/02/16] cholecalciferol (vitamin D3) 1,000 unit capsule 2,000 unit PO DAILY cap [History Confirmed 10/03/16 Last Taken 10/03/16] omega-3 fatty acids 1,000 mg capsule 1,000 mg PO BID cap 09/25/14 [History Confirmed 10/03/16 Last Taken 10/03/16] tamsulosin 0.4 mg capsule 0.4 mg PO .QOD #90 cap 06/08/16 [Rx Confirmed Last Taken 10/02/16] Cyanocobalamin [Vitamin B12] 1,000 mcg IM WEEKLY 07/03/16 [History Confirmed Last Taken 10/03/16] Phenazopyridine [Pyridium] 200 mg PO TIDP PRN #6 tab 08/24/16 [Rx Confirmed Last Taken Unknown] acetaminophen 325 mg capsule 650 mg PO Q4H PRN 09/15/16 [History Confirmed 10/03 Last Taken 10/03/16 1022] bisacodyl 10 mg rectal suppository 10 mg NV ONCE PRN 09/15/16 [History Confirmed 10/03/16 Last Taken Unknown] calcium carbonate 200 mg calcium (500 mg) chewable tablet 200 mg PO TID PRN [History Confirmed 10/03/16 Last Taken Unknown] dutasteride 0.5 mg capsule 0.5 mg PO QDAY 09/15/16 [History Confirmed 10/03/16 Last Taken 10/02/16] escitalopram 10 mg tablet 10 mg PO QDAY 09/15/16 [History Confirmed 10/03/16 Last Taken 10/02/16] folic acid 1 mg tablet 1 mg PO QDAY 09/15/16 [History Confirmed 10/03/16 Last Taken 10/02/16] magnesium hydroxide 400 mg/5 mL oral suspension 7.5 ml PO BID PRN 09/15/16 [ History Confirmed 10/03/16 Last Taken Unknown] melatonin 3 mg tablet 3 mg PO HS PRN 09/15/16 [History Confirmed 10/03/16 Last Taken Unknown] multivitamin,ja-jeqk-defakvop tablet 1 tab PO QDAY 09/15/16 [History Confirmed 10/03/16 Last Taken 10/02/16] omeprazole 20 mg capsule,delayed release 20 mg PO QDAY cap 09/15/16 [History Confirmed 10/03/16 Last Taken 10/03/16] polyethylene glycol 3350 17 gram/dose oral powder 8.5 g PO QDAY PRN 09/15/16 [ History Confirmed 10/03/16 Last Taken Unknown] sodium phosphates 19 gram-7 gram/118 mL enema 118 ml NV ONCE 09/15/16 [History Confirmed 10/03/16 Last Taken Unknown] Calcium (Oyster Shell) [Oscal] 500 mg PO DAILY 10/03/16 [History Confirmed 10/03 Last Taken 10/03/16] Furosemide [Lasix] 20 mg PO Q48 10/03/16 [History Confirmed 10/03/16 Last Taken 10/03/16] Isosorbide Mononitrate [Isosorbide Mononitrate ER] 30 mg PO DAILY 10/03/16 [ History Confirmed 10/03/16 Last Taken 10/03/16] Lactobacillus [Culturelle] 1 cap PO DAILY 10/03/16 [History Confirmed 10/03/16 Last Taken 10/03/16] Melatonin [Melatin] 3 mg PO DAILY 10/03/16 [History Confirmed 10/03/16 Last Taken 10/02/16] Medical - DS: Hosp Hospital course: Mr. Luz is a 86 year old M male with h/o dementia, admitted to the hospital with sepsis secondary to Cdiff diarrhea. He had a UTI few weeks a go and was treatd with ABX for same. His noted that he had sudden onset diarrhea, and increased confusion. In the ER he was ntoed to have elevated wbc, and Cdiff positive on stool. He was admitted to the hospital forr further management Sepsis: Due to Cdiff: resolved with IV fluids and treatment of underlying cause. His blood culture drawn on admission was propionibacteria, Clinically he does not seem sick his procalcitonin is 0.07. This is likely a contaminant. Cdiff diarrhea: Patient was treated with PO Vancomycin 250mg four times a day with good response, it took him a few days to improve his stool output, but overall his condition improved and he had only 1 BM in last 24 hours. He has been advised to keep himself well hydrated. I would advise to cover with PO vancomycin for Cdiff prophylaxis should the patient have a need for broad spectrum antibiotic for any other condition Anxiety: According to the patients that patient does seem to get anxious at night, and sometimes during the day he is on an ssri, but she would also like something else to be added. She spoke I believe with Dr Jackson who advised her trazodone for the patient . Dr jackson will be taking over the care for this patient at the rehab center. The patient was given 50 of trazodone at bedtime which was a bit too much I feel as he was more drowsy in the AM the next day, his dose was cut back to 25mg qhs which he seems to have tolerated well. He can also have 12.5mg bid prn during the day if he gets more anxious. BPH He is on meds for same, his dose of tamsulosin was every 48 hrs? I changed the prescription to daily for now. He does have some symptoms but his post void residue today was 50 cc The patient rest of the condition was unremarkable, he had one episode of rapid response called where he was drowsy and had low bp and complained of chest pains , workup was normal, ekg and trop, cxr was negative. The patients home med list is unchanged except of tamsulosin being made a daily medication. He will take a short term course of vancomycin. Discharge diagnosis: cdiff diarrhea. - Time Spent with Patient Total time spent providing and/or coordinating discharge services: Greater than 30 minutes Medical - DS: Exam - Constitutional Vitals: Vital Signs Temp Pulse Pulse Pulse Resp BP Pulse Ox 10/09/16 08:45 97.0 F 18 114/68 96 10/09/16 04:00 97.6 F 58 L 16 122/62 95 10/08/16 23:43 97.6 F 60 20 106/62 95 10/08/16 20:00 98.1 F 69 18 90/51 96 10/08/16 12:00 97.3 F 56 L 56 L 20 118/64 95 Intake and Output 10/08/16 10/09/16 10/09/16 21:59 05:59 13:59 Intake Total 1300 / 1300 500 / 500 Output Total 101 / 101 100 / 100 100 / 100 Balance 1199 / 1199 400 / 400 -100 / -100 Intake: IV 1000 / 1000 Sodium Chloride 0.9% 1, 1000 / 1000 000 ml @ 100 mls/hr IV . Q10H [facility]ITCHIE Rx#:[id number] Oral 300 / 300 500 / 500 Output: Void Amount 100 / 100 100 / 100 100 / 100 # of times incontinent of 1 / 1 urine Other: Meal Lunch Percent of Meal Consumed 100% Weight 128 lb Additional comments: Constitutional; Afebrile, cooperative, alert participating in care., not in distress. Eyes- No icterus, , No periorbital swelling Ears- Ext ear normal, hearing hard to conversation. Neck- Midline trachea, supple Respiratory system: Air Entry equal on both sides, No crackles or wheezing, no rhonchi. CVS- Rate rhythm regular, S1,S2 heard, no gallop, no rub. Abdomen- Soft nontender abdomen, no organomegaly, no tenderness, no guarding or rigidity, HELICOPTER MECHANIC- AOOx2, moving all extremities, no gross focal deficit noted. Medical - DS: Data Labs on day of discharge: Labs from last 24 hours 10/09/16 10/09/16 10/09/16 07:40 04:05 04:05 WBC 5.5 RBC 4.48 L Hgb 15.0 Hct 42.9 MCV 95.8 MCH 33.5 MCHC 35.0 RDW 14.8 H Plt Count 239 MPV 8.4 Gran % 60.4 Lymph % (Auto) 14.3 L [place] % (Auto) 17.6 H Eos % (Auto) 7.4 H Baso % (Auto) 0.3 Gran # 3.3 Lymph # (Auto) 0.8 L [place] # (Auto) 1.0 H Eos # (Auto) 0.4 Baso # (Auto) 0 Sodium 138 Potassium 4.4 Chloride 101 Carbon Dioxide 26 Anion Gap 11.0 BUN 8 Creatinine 0.7 GFR Calculation 85 Glucose 85 Uric Acid 3.6 Calcium 9.0 Phosphorus 2.8 Magnesium 2.0 Total Bilirubin 0.6 Direct Bilirubin < 0.2 GGT 13 AST 21 ALT 21 Alkaline Phosphatase 63 Lactate Dehydrogenase 202 Total Protein 5.7 L Albumin 3.2 Globulin 2.5 Albumin/Globulin Ratio 1.3 Triglycerides 76 Procalcitonin 0.07 Medical - DS: A/P - Patient/Caregiver Discharge Instructions Activity: as per physical therapy, increase activity as tolerated Diet: Cardiac Additional Instructions: GO to ER if worsening diarrhea, fever, chest pain or shortness of breath Take PO vancomycin for 10 days Follow up with PCP in 7-14 days. Prescriptions: Tamsulosin HCl [Flomax] 0.4 mg PO BID #60 cap.er.24h Vancomycin Oral Amanda 250 mg PO QID #100 ml Other Amb Orders: OT Discharge Order Location: Determined By Patient Physical Therapy at Discharge - General Location: Determined By Patient ST Discharge Order Location: Determined By Patient - Follow up Plan Follow up with: Desmond Jackson MD [Primary Care Provider] - (Call/schedule follow up to be seen in 7-10 days.) Tylor Jackson MD [Physician] - Disposition: Xfer SNF Prognosis: Fair Rehab Potential: Fair I certify that the patient requires SNF services: Yes Overall status at discharge: patient is progressing back to baseline Medical - DS: Qual - VTE Deep Vein Thrombosis/Pulmonary Embolism Present on Admission: No
--- NOTE | 2016-10-10 11:54 | Internal Med Progress Note ---
Medical - Auxillary Note - Subjective Patient Information: Note initiated : 10/10/16 at 11:52 am Service Date, if different from initiated Date: [] Patient: Se Luz 86 y/o M admitted on 10/03/16 for altered mental status. Chief Complaint: Notified by nursing that pt has 1/2 +BC for GPC. I spoke with Dr. Jackson at [facility]. He agrees with waiting for speciation and he will follow up with final results and determine treatment plan.
== END 2016-10-09 13:15 | DRG 872 ==
LOC: ED 14:07 → MEDSUR 17:45
PROVIDERS: ADMIT Internal Medicine; ATTEND Internal Medicine